=== PATIENT | female | born 1975 | race Caucasian/White ===

== ENCOUNTER 2017-03-29 10:30 | Inpatient (IN) | payer BC ==
[~2017-03-29] VITALS: Ht 177.8 cm; Wt 86.2 kg
--- NOTE | 2017-03-29 11:15 | Emergency Room Report ---
History of Present Illness General Chief Complaint: General Complaint Source: Patient Present Illness HPI Patient present with complaints of increased redness and discomfort to bilateral inguinal region Worsening symptoms over the past several days There is no increased discharge Pain is 6/10 Patient denies any fevers She was previously anemic however denies any shortness of breath or cough Denies any vomiting or diarrhea given the increased erythema given some any discharge and discomfort Patient presents for further eval Allergies: Coded Allergies: No Known Allergies (Unverified , 03/29/17) Patient History Past Medical History: see triage record Pertinent Family History: none Now: No Reviewed Nursing Documentation: PMH: Agreed, PSxH: Agreed Nursing Documentation-PMH Hx Cardiac Problems: No - HIDRADENITIS SUPPURATIVA Hx Hypertension: No - ANEMIA Review of Systems All Other Systems: negative except mentioned in HPI Physical Exam Vital Signs Date Time Temp Pulse Resp B/P (MAP) Pulse Ox O2 Delivery O2 Flow Rate FiO2 03/29/17 10:33 98.2 103 20 127/73 99 Sp02 EP Interpretation: reviewed, normal General Appearance: no apparent distress Head: normocephalic, atraumatic Eyes: bilateral eye PERRL, bilateral eye EOMI ENT: hearing grossly normal, normal pharynx Neck: full range of motion, supple Respiratory: lungs clear Cardiovascular #1: regular rate, rhythm, no edema Gastrointestinal: non tender, soft, no mass Genitourinary: no CVA tenderness Musculoskeletal: normal inspection Neurologic: alert, oriented x3, responsive Skin: other - Significant bilateral inguinal region erythema, tenderness on palpation, multiple areas of fluctuance, the area tracks circumferentially from the anterior inguinal area bilaterally, around to be buttock area Lymphatic: other - Inguinal lymph node difficulty eval given the clinical presentation Medical Decision Making Diagnostic Impression: Primary Impression: Abscess Additional Impression: Cellulitis ER Course Bilateral a little regions appear infected, there is increased erythema fluctuance Area appears fairly concerning Differentials such as, Missael gangrene also considered Patient has baseline blood work initiated Blood work does show elevated white blood cell count in line with the clinical signs of infection patient received IV antibiotics and requires admission for further inpatient care and specialty consultation Labs Test 03/29/17 11:24 White Blood Count 14.3 K/UL (4.8-10.8) Red Blood Count 4.50 M/UL (4.20-5.40) Hemoglobin 11.2 G/DL (12.0-16.0) Hematocrit 36.8 % (37.0-47.0) Mean Corpuscular Volume 82 FL (80-99) Mean Corpuscular Hemoglobin 25.0 PG (27.0-31.0) Mean Corpuscular Hemoglobin Concent 30.6 G/DL (32.0-36.0) Red Cell Distribution Width 19.4 % (11.6-14.8) Platelet Count 457 K/UL (150-450) Mean Platelet Volume 5.2 FL (6.5-10.1) Neutrophils (%) (Auto) 78.6 % (45.0-75.0) Lymphocytes (%) (Auto) 15.3 % (20.0-45.0) Monocytes (%) (Auto) 4.5 % (1.0-10.0) Eosinophils (%) (Auto) 0.8 % (0.0-3.0) Basophils (%) (Auto) 0.7 % (0.0-2.0) Prothrombin Time 9.6 SEC (9.30-11.50) Prothromb Time International Ratio 0.9 (0.9-1.1) Activated Partial Thromboplast Time 24 SEC (23-33) Urine Color Yellow Urine Appearance Clear Urine pH 5 (4.5-8.0) Urine Specific [place] 1.005 (1.005-1.035) Urine Protein Negative (NEGATIVE) Urine Glucose (UA) Negative (NEGATIVE) Urine Ketones Negative (NEGATIVE) Urine Occult Blood 3+ (NEGATIVE) Urine Nitrite Negative (NEGATIVE) Urine Bilirubin Negative (NEGATIVE) Urine Urobilinogen Normal MG/DL (0.0-1.0) Urine Leukocyte Esterase 3+ (NEGATIVE) Urine RBC 2-4 /HPF (0 - 2) Urine WBC 2-4 /HPF (0 - 2) Urine Squamous Epithelial Cells Occasional /LPF Urine Bacteria Occasional /HPF (NONE) Urine HCG, Qualitative Negative Sodium Level 137 mEQ/L (135-145) Potassium Level 4.2 mEQ/L (3.4-4.9) Chloride Level 101 mEQ/L (98-107) Carbon Dioxide Level 24 mEQ/L (20-30) Anion Gap 12 (5-15) Blood Urea Nitrogen 6 mg/dL (7-23) Creatinine 0.6 mg/dL (0.5-0.9) Estimat Glomerular Filtration Rate > 60 mL/min (>60) Glucose Level 89 mg/dL (74-106) Lactic Acid Level 1.10 mmol/L (0.66-2.22) Calcium Level 8.0 mg/dL (8.6-10.2) Total Bilirubin 0.3 mg/dL (0.0-1.2) Aspartate Amino Transf (AST/SGOT) 17 U/L (5-40) Alanine Aminotransferase (ALT/SGPT) 10 U/L (3-33) Alkaline Phosphatase 82 U/L (35-104) Total Creatine Kinase 37 U/L (26-140) Creatine Kinase MB < 1.5 ng/mL (< 3.8) Creatine Kinase MB Relative Index Troponin I < 0.30 ng/mL (<=0.30) Total Protein 7.6 g/dL (6.6-8.7) Albumin 2.8 g/dL (3.5-5.2) Globulin 4.8 g/dL Albumin/Globulin Ratio 0.5 (1.0-2.7) Lipase 14 U/L (< 60) Rhythm Strip Diag. Results EP Interpretation: yes Rate: 67 Rhythm: NSR, no PVC's, no ectopy Last Vital Signs Date Time Temp Pulse Resp B/P (MAP) Pulse Ox O2 Delivery O2 Flow Rate FiO2 03/29/17 10:33 98.2 103 20 127/73 99 Status: improved Disposition: ADMITTED INPATIENT Condition: Serious Referrals: NOT CHOSEN IPA/,REFERRING (PCP) DIEGO SAMAYOA D.O. Mar 29, 2017 11:15
[2017-03-29 11:37] LABS: BASOPHILS % (AUTO) 0.7 % (0.0-2.0); EOSINOPHILS % (AUTO) 0.8 % (0.0-3.0); LYMPHOCYTES % (AUTO) 15.3 % (20.0-45.0); MEAN CORPUSCULAR HGB CONC 30.6 G/DL (32.0-36.0); MEAN CORPUSCULAR VOLUME 82 FL (80-99); MEAN PLATELET VOLUME 5.2 FL (6.5-10.1); MONOCYTES % (AUTO) 4.5 % (1.0-10.0); NEUTROPHILS % (AUTO) 78.6 % (45.0-75.0); PLATELET COUNT 457 K/UL (150-450); RED CELL DISTRIBUTION WIDTH 19.4 % (11.6-14.8); WHITE BLOOD COUNT 14.3 K/UL (4.8-10.8)
[2017-03-29 11:39] LABS: APPEARANCE,URINE CLEAR; KETONES,URINE NEGATIVE (NEGATIVE); LEUKOCYTE ESTERASE ,URINE 3+ (NEGATIVE); NITRITE,URINE NEGATIVE (NEGATIVE); PH,URINE 5 (4.5-8.0); PROTEIN,URINE NEGATIVE (NEGATIVE); UROBILINOGEN,URINE NORMAL MG/DL (0.0-1.0)
[2017-03-29 11:46] LABS: BACTERIA,URINE OCCASIONAL /HPF; SQUAMOUS EPITHELIAL CELL,UR OCCASIONAL /LPF (NONE/OCC)
[2017-03-29 11:48] LABS: INR 0.9 (0.9-1.1); PROTHROMBIN TIME 9.6 SEC (9.30-11.50)
[2017-03-29 11:55] LABS: ALANINE AMINOTRANSFERASE 10 U/L (3-33); ALBUMIN/GLOBULIN RATIO 0.5 (1.0-2.7); ANION GAP 12 (5-15); ASPARTATE AMINO TRANSFERASE 17 U/L (5-40); CARBON DIOXIDE 24 mEQ/L (20-30); CHLORIDE 101 mEQ/L (98-107); CREATININE 0.6 mg/dL (0.5-0.9); GLOMERULAR FILTRATION RATE > 60 mL/min (>60); HEMOLYSIS 47; LIPASE 14 U/L (< 60); POTASSIUM 4.2 mEQ/L (3.4-4.9); SODIUM 137 mEQ/L (135-145); TOTAL PROTEIN 7.6 g/dL (6.6-8.7); TROPONIN I < 0.30 ng/mL (<=0.30)
[2017-03-29 12:00] VITALS: BP 132/79
[2017-03-29 12:05] LABS: CKMB < 1.5 ng/mL (< 3.8)
[2017-03-29] MEDS ORDERED: ENSKYCE1 EACH PO (12:19)
[2017-03-29] MEDS ORDERED: cefTRIAXone 1 GM in NS 55 ML IVPB ONE (12:30)
[2017-03-29] MEDS: Vancomycin 1.5gm/D5W 250ml 250 ML IVPB ONE ×2 (12:46→13:11)
[2017-03-29] MEDS ORDERED: Morphine Sulfate 4mg/ml Inj IVP PRN (14:45)
[2017-03-29] MEDS ORDERED: Milk of Magnesia 30ml Ud ORAL PRN (14:45)
[2017-03-29] MEDS ORDERED: Morphine Sulfate 2mg/ml Inj IVP PRN (14:45)
[2017-03-29] MEDS ORDERED: Zolpidem 5mg tab ORAL PRN (14:45)
[2017-03-29] MEDS ORDERED: Miralax 17gm pkt ORAL PRN (14:45)
[2017-03-29] MEDS: D5 1/2NS 1,000 ML IV SCH (16:05)
--- NOTE | 2017-03-29 16:40 | Diagnostic Imaging Report ---
Indication: Dyspnea Comparison: None A single view chest radiograph was obtained. Findings: Cardiomediastinal appearance is within normal limits for age. Pulmonary vascularity is appropriate. The diaphragmatic contour is smooth and costophrenic angles are sharp. No pleural effusions are identified. The bones are unremarkable. Impression: No acute findings
--- NOTE | 2017-03-29 18:30 | History and Physical ---
History of Present Illness General Date patient seen: Mar 29, 2017 Time patient seen: 18:29 Reason for Hospitalization: Groin swellng/redness/pain/drainage Present Illness HPI 42y/o female with pmh of hiradenitis suppurative who presents with increased redness/swelling/pain/drainage form b/l groins. Pt notes worsening symptoms over the past several days. Denies f/c, n/v, d/c, chest pain, SOB. Able to ambulate several blocks and climb several flights of stairs w/o symptoms. Allergies: Coded Allergies: No Known Allergies (Unverified , 03/29/17) Medication History Miscellaneous Medications Desogestrel-Ethinyl Estradiol (Enskyce), 1 EACH PO, (Reported) Patient History History Provided By: Patient, Medical Record Healthcare decision maker Resuscitation status Advanced Directive on File Past Medical/Surgical History Past Medical/Surgical History: (1) Hidradenitis suppurativa Family History Family History: Patient reports no known family medical history. Social History Social History: (1) No significant social history Review of Systems ROS Narrative CONSTITUTIONAL: No weight loss, fever, chills, weakness or fatigue. HEENT: Eyes: No visual loss, blurred vision, double vision or yellow sclerae. Ears, Nose, Throat: No hearing loss, sneezing, congestion, runny nose or sore throat. SKIN: No rash or itching. CARDIOVASCULAR: No chest pain, chest pressure or chest discomfort. No palpitations or edema. RESPIRATORY: No shortness of breath, cough or sputum. GASTROINTESTINAL: No anorexia, nausea, vomiting or diarrhea. No abdominal pain or blood. NEUROLOGICAL: No headache, dizziness, syncope, paralysis, ataxia, numbness or tingling in the extremities. No change in bowel or bladder control. MUSCULOSKELETAL: No muscle, back pain, joint pain or stiffness. HEMATOLOGIC: No anemia, bleeding or bruising. LYMPHATICS: No enlarged nodes. No history of splenectomy. PSYCHIATRIC: No history of depression or anxiety. ENDOCRINOLOGIC: No reports of sweating, cold or heat intolerance. No polyuria or polydipsia. ALLERGIES: No history of asthma, hives, eczema or rhinitis. Physical Exam Physical Exam Narrative General: alert, cooperative, no distress, appears stated age Head: normocephalic, without obvious abnormality, atraumatic Eyes: conjunctivae/corneas clear. PERRL, EOM's intact Throat: lips, mucosa, and tongue normal. MMM Neck: supple, symmetrical, trachea midline, and no JVD Lungs: clear to auscultation bilaterally Heart: regular rate and rhythm, S1, S2 normal, no murmur, click, rub or gallop Abdomen: soft, non-tender, non-distended, bowel sounds normal; no masses or organomegaly Extremities: extremities normal, atraumatic, no cyanosis or edema Pulses: 2+ and symmetric Skin: skin color, texture, turgor normal; +HS lesions of b/l groin Neurologic: grossly normal, no focal deficits Last 24 Hour Vital Signs Date Time Temp Pulse Resp B/P (MAP) Pulse Ox O2 Delivery O2 Flow Rate FiO2 03/29/17 13:06 98.2 92 16 132/79 100 Room Air 03/29/17 12:00 92 16 132/79 100 Room Air 03/29/17 10:33 98.2 103 20 127/73 99 Intake and Output 03/29/17 03/30/17 19:00 07:00 Intake Total 575 ml Balance 575 ml Intake Oral 520 ml IV Total 55 ml # Voids 1 Laboratory Tests Test 03/29/17 11:24 White Blood Count 14.3 K/UL (4.8-10.8) H Red Blood Count 4.50 M/UL (4.20-5.40) Hemoglobin 11.2 G/DL (12.0-16.0) L Hematocrit 36.8 % (37.0-47.0) L Mean Corpuscular Volume 82 FL (80-99) Mean Corpuscular Hemoglobin 25.0 PG (27.0-31.0) L Mean Corpuscular Hemoglobin Concent 30.6 G/DL (32.0-36.0) L Red Cell Distribution Width 19.4 % (11.6-14.8) H Platelet Count 457 K/UL (150-450) H Mean Platelet Volume 5.2 FL (6.5-10.1) L Neutrophils (%) (Auto) 78.6 % (45.0-75.0) H Lymphocytes (%) (Auto) 15.3 % (20.0-45.0) L Monocytes (%) (Auto) 4.5 % (1.0-10.0) Eosinophils (%) (Auto) 0.8 % (0.0-3.0) Basophils (%) (Auto) 0.7 % (0.0-2.0) Prothrombin Time 9.6 SEC (9.30-11.50) Prothromb Time International Ratio 0.9 (0.9-1.1) Activated Partial Thromboplast Time 24 SEC (23-33) Urine Color Yellow Urine Appearance Clear Urine pH 5 (4.5-8.0) Urine Specific [place] 1.005 (1.005-1.035) Urine Protein Negative (NEGATIVE) Urine Glucose (UA) Negative (NEGATIVE) Urine Ketones Negative (NEGATIVE) Urine Occult Blood 3+ (NEGATIVE) H Urine Nitrite Negative (NEGATIVE) Urine Bilirubin Negative (NEGATIVE) Urine Urobilinogen Normal MG/DL (0.0-1.0) Urine Leukocyte Esterase 3+ (NEGATIVE) H Urine RBC 2-4 /HPF (0 - 2) H Urine WBC 2-4 /HPF (0 - 2) Urine Squamous Epithelial Cells Occasional /LPF Urine Bacteria Occasional /HPF (NONE) Urine HCG, Qualitative Negative Sodium Level 137 mEQ/L (135-145) Potassium Level 4.2 mEQ/L (3.4-4.9) Chloride Level 101 mEQ/L (98-107) Carbon Dioxide Level 24 mEQ/L (20-30) Anion Gap 12 (5-15) Blood Urea Nitrogen 6 mg/dL (7-23) L Creatinine 0.6 mg/dL (0.5-0.9) Estimat Glomerular Filtration Rate > 60 mL/min (>60) Glucose Level 89 mg/dL (74-106) Lactic Acid Level 1.10 mmol/L (0.66-2.22) Calcium Level 8.0 mg/dL (8.6-10.2) L Total Bilirubin 0.3 mg/dL (0.0-1.2) Aspartate Amino Transf (AST/SGOT) 17 U/L (5-40) Alanine Aminotransferase (ALT/SGPT) 10 U/L (3-33) Alkaline Phosphatase 82 U/L (35-104) Total Creatine Kinase 37 U/L (26-140) Creatine Kinase MB < 1.5 ng/mL (< 3.8) Creatine Kinase MB Relative Index Troponin I < 0.30 ng/mL (<=0.30) Total Protein 7.6 g/dL (6.6-8.7) Albumin 2.8 g/dL (3.5-5.2) L Globulin 4.8 g/dL Albumin/Globulin Ratio 0.5 (1.0-2.7) L Lipase 14 U/L (< 60) Height (Feet): 5 Height (Inches): 10.00 Weight (Pounds): 190 Medications Current Medications Medications (Trade) Dose Ordered Sig/Drea Route PRN Reason Start Time Stop Time Status Last Admin Dose Admin Acetaminophen (Tylenol) 650 mg Q4H PRN ORAL Mild Pain (Pain Scale 1-3) 03/29/17 14:45 04/28/17 14:44 Bisacodyl (Dulcolax) 10 mg HSPRN PRN RECTAL Constipation 03/29/17 14:45 04/28/17 14:44 Dextrose (Dextrose 50%) STAT PRN IV Hypoglycemia 03/29/17 14:45 04/28/17 14:44 Dextrose/Sodium Chloride 1,000 ml @ 75 mls/hr [id number] IV 03/29/17 15:00 04/28/17 14:59 03/29/17 16:05 Diphenhydramine HCl (Benadryl) 25 mg Q4H PRN ORAL Itching 03/29/17 15:00 04/28/17 14:59 03/29/17 15:57 Docusate Sodium (Colace) 100 mg EVERY 12 HOURS ORAL 03/29/17 21:00 04/28/17 20:59 Magnesium Hydroxide (Mom) 30 ml HSPRN PRN ORAL Constipation 03/29/17 14:45 04/28/17 14:44 Morphine Sulfate (Morphine Sulfate) 2 mg Q4H PRN IVP Moderate Pain (Pain Scale 4-6) 03/29/17 14:45 04/05/17 14:44 Morphine Sulfate (Morphine Sulfate) 4 mg Q4H PRN IVP Severe Pain (Pain Scale 7-10) 03/29/17 14:45 04/05/17 14:44 Ondansetron HCl (Zofran) 4 mg Q6H PRN IVP Nausea & Vomiting 03/29/17 14:45 04/28/17 14:44 Polyethylene Glycol (Miralax) 17 gm HSPRN PRN ORAL Constipation 03/29/17 14:45 04/28/17 14:44 Zolpidem Tartrate (Ambien) 5 mg HSPRN PRN ORAL Insomnia 03/29/17 14:45 04/05/17 14:44 Assessment/Plan Problem List: (1) Abscess ICD Codes: L02.91 - Cutaneous abscess, unspecified SNOMED: 490082098 (2) Hidradenitis suppurativa ICD Codes: L73.2 - Hidradenitis suppurativa SNOMED: 51460350 Status: stable Assessment/Plan Admit inpt Plastic surgery consulted Check blood cultures x 2 Empiric IV ancef Pain control, bowel regimen Supportive care If patient is required to have surgery, based on the patient's medical history, and other available ancillary data, the patient is a LOW risk for an INTERMEDIATE risk procedure. Per the most recent ACC/AHA guidelines, the patient does not need any further cardiopulmonary testing prior to the procedure and there do not appear to be any clear medical contraindications to proceeding with the proposed procedure. D/w pt, RN, surgery regarding mgmt and dispo Molly Rodriguez M.D. Mar 29, 2017 18:30
[2017-03-29 20:00] VITALS: BP 119/67
[2017-03-29] MEDS: Docusate 100mg cap ORAL SCH (20:07)
[2017-03-30] VITALS (12 sets, daily range): BP systolic 108–124; BP diastolic 58–73
[2017-03-30] MEDS ORDERED: ceFAZolin 1gm/50ml Premix 50 ML IV ONE (00:30)
[2017-03-30] MEDS: D5 1/2NS 1,000 ML IV SCH (05:22)
[2017-03-30] MEDS: Docusate 100mg cap ORAL SCH ×2 (08:26→21:23)
--- NOTE | 2017-03-30 13:32 | General Progress Note ---
Assessment/Plan Problem List: (1) Abscess ICD Codes: L02.91 - Cutaneous abscess, unspecified SNOMED: 122024035 (2) Hidradenitis suppurativa ICD Codes: L73.2 - Hidradenitis suppurativa SNOMED: 85287867 Status: stable Assessment/Plan Plastic surgery consulted Empiric IV ancef F/u blood cultures Pain control, bowel regimen Supportive care D/w pt, RN, surgery regarding mgmt and dispo Subjective Date patient seen: Mar 30, 2017 Time patient seen: 13:32 ROS Limited/Unobtainable: No Constitutional: Reports: no symptoms HEENT: Reports: no symptoms Cardiovascular: Reports: no symptoms Respiratory: Reports: no symptoms Gastrointestinal/Abdominal: Reports: no symptoms Genitourinary: Reports: no symptoms Neurologic/Psychiatric: Reports: no symptoms Endocrine: Reports: no symptoms Hematologic/Lymphatic: Reports: no symptoms Allergies: Coded Allergies: No Known Allergies (Unverified , 03/29/17) Subjective No acute o/n events NPO for OR today Objective Last 24 Hour Vital Signs Date Time Temp Pulse Resp B/P (MAP) Pulse Ox O2 Delivery O2 Flow Rate FiO2 03/30/17 12:00 98.7 80 18 124/70 97 Room Air 03/30/17 08:00 98.3 76 18 120/67 99 Room Air 03/30/17 04:00 97.9 75 18 119/62 97 Room Air 03/29/17 20:00 98.2 88 18 119/67 95 Room Air Intake and Output 03/30/17 03/31/17 19:00 07:00 Intake Total 450 ml Balance 450 ml IV Total 450 ml Height (Feet): 5 Height (Inches): 10.00 Weight (Pounds): 190 Objective General: alert, cooperative, no distress, appears stated age Head: normocephalic, without obvious abnormality, atraumatic Eyes: conjunctivae/corneas clear. PERRL, EOM's intact Throat: lips, mucosa, and tongue normal. MMM Neck: supple, symmetrical, trachea midline, and no JVD Lungs: clear to auscultation bilaterally Heart: regular rate and rhythm, S1, S2 normal, no murmur, click, rub or gallop Abdomen: soft, non-tender, non-distended, bowel sounds normal; no masses or organomegaly Extremities: extremities normal, atraumatic, no cyanosis or edema Pulses: 2+ and symmetric Skin: skin color, texture, turgor normal; no rashes or lesions Neurologic: grossly normal, no focal deficits Molly Rodriguez M.D. Mar 30, 2017 13:32
[2017-03-30] MEDS ORDERED: Bacitracin 50000 Units Vial ONE ×2 (14:18→16:07)
[2017-03-30] MEDS ORDERED: Lidocaine 1% 10mg/ml/Epi 0.005mg/ml 30ml vial INJ ONE ×2 (14:18→16:06)
--- NOTE | 2017-03-30 14:47 | Cardiology Report ---
APPROVED REPORT EKG Measurement Heart [id number] Normal sinus rhythm Possible Left atrial enlargement Left ventricular hypertrophy Abnormal ECG
[2017-03-30] MEDS ORDERED: Metoclopramide 10mg/2ml Inj IVP PRN ×2 (16:00→17:30)
[2017-03-30] MEDS ORDERED: Zolpidem 5mg tab ORAL PRN (16:00)
[2017-03-30] MEDS ORDERED: Rate Change PCA 1 Each MISC PRN ×2 (16:00→17:30)
[2017-03-30] MEDS ORDERED: PCA Education Pamphlet MISC ONE ×2 (16:00→17:30)
--- NOTE | 2017-03-30 16:00 | Pre-Procedure Note/Attestation ---
Pre-Procedure Note/Attestation Complete Prior to Procedure Planned Procedure: bilateral Procedure Narrative: Bilateral groin tissue debridement and flap elevation Attestation I attest that I discussed the nature of the procedure; its benefits; risks and complications; and alternatives (and the risks and benefits of such alternatives ), prior to the procedure, with the patient (or the patient's legal claims customer service representative). I attest that, if there was a reasonable possibility of needing a blood transfusion, the patient (or the patient's legal claims customer service representative) was given the [facility] standardized written summary, pursuant to the Ronal Yumiko Blood Safety Act ([place] Health and Safety Code # 1645, as amended). I attest that I re-evaluated the patient just prior to the surgery and that there has been no change in the patient's H&P, except as documented below: NBA VÁSQUEZ Mar 30, 2017 16:00
[2017-03-30] MEDS ORDERED: NeoSporin Gu Irrig 1ml Amp IRRIG ONE (16:07)
[2017-03-30] MEDS ORDERED: NS Irrig 1000ml ONE (16:30)
[2017-03-30] MEDS ORDERED: LR 1000ml ONE (16:30)
[2017-03-30] MEDS ORDERED: Propofol 200mg/20ml IV ONE (16:30)
[2017-03-30] MEDS ORDERED: Ketorolac 30mg Inj ONE (16:30)
[2017-03-30] MEDS ORDERED: Morphine Sulfate 10mg/ml Inj ONE (16:30)
[2017-03-30] MEDS ORDERED: fentaNYL 100 mcg/2 mL IV ONE (16:30)
[2017-03-30] MEDS ORDERED: Midazolam 2mg/2ml Inj ONE (16:30)
[2017-03-30] MEDS ORDERED: Sterile Water Irrig 1000ml IRRIG ONE (16:30)
[2017-03-30] MEDS ORDERED: Surgicel 4in x 8in TOPIC ONE ×2 (17:17→17:23)
--- NOTE | 2017-03-30 17:26 | Anethesia Preoperative Eval ---
Anesthesia Pre-op PMH/ROS General Date of Evaluation: Mar 30, 2017 Time of Evaluation: 16:10 Anesthesiologist: Judy ASA Score: ASA 3 Mallampati Score Class I : Soft palate, uvula, fauces, pillars visible Class II: Soft palate, uvula, fauces visible Class III: Soft palate, base of uvula visible Class IV: Only hard plate visible Mallampati Classification: Class II Surgeon: Faraz Diagnosis: Recurrent HS Surgical Procedure: Excision of bilateral groin HS Anesthesia History: none Family History: no anesthesia problems Allergies: Coded Allergies: No Known Allergies (Unverified , 03/29/17) Medications: see eMAR Past Medical History Cardiovascular: Denies: HTN, CAD, [place], valve dz, arrhythmia, other Pulmonary: Denies: asthma, COPD, JUANA, other Gastrointestinal/Genitourinary: Reports: GERD Neurologic/Psychiatric: Reports: depression/anxiety, Denies: dementia, CVA, TIA, other Endocrine: Denies: DM, hypothyroidism, steroids, other HEENT: Denies: cataract (L), cataract (R), glaucoma, KOBUK (L), KOBUK (R), other Hematology/Immune: Reports: anemia, Denies: DVT, bleeding disorder, other Musculoskeletal/Integumentary: Denies: OA, RA, DJD, DDD, edema, other Other: obesity - s/p gastric bypass PMH Narrative: as above PSxH Narrative: gastric bypass, abdominoplasty breast reduction, HS treatment Anesthesia Pre-op Phys. Exam Physician Exam Last Vital Signs Date Time Temp Pulse Resp B/P (MAP) Pulse Ox O2 Delivery O2 Flow Rate FiO2 03/30/17 12:00 98.7 80 18 124/70 97 Room Air Constitutional: NAD Neurologic: CN 2-12 intact Cardiovascular: RRR, no M/R/G Respiratory: CTA Gastrointestinal: S/NT/ND Airway Exam Mallampati Score: Class II MO: full Neck: flexible ROM: full Teeth: intact Dentures: no upper, no lower Anesthesia Pre-op A/P Labs see chart Studies Pre-op Studies: EKG - NSR Risk Assessment & Plan Assessment: ASA 3 Plan: GA with LMA Status Change Before Surgery: No Pre-Antibiotics Drug: Ancef 1 gr. Given Within 1 Hr of Incision: Yes Time Given: 17:10 PIETER VARGAS M.D. Mar 30, 2017 17:26
[2017-03-30] MEDS ORDERED: LORazepam 1mg tab ORAL PRN (17:30)
[2017-03-30] MEDS ORDERED: Meperidine 25mg/0.5ml Inj (FOR RIGORS ONLY) IV PRN (17:30)
[2017-03-30] MEDS ORDERED: DiphenhydrAMINE 50mg/ml Inj IVP PRN ×2 (17:30)
[2017-03-30] MEDS ORDERED: Midazolam 2mg/2ml Inj IVP PRN (17:30)
[2017-03-30] MEDS ORDERED: Ketorolac 30mg Inj IV PRN (17:30)
[2017-03-30] MEDS ORDERED: Naloxone 0.4mg/ml Inj IVP PRN (17:30)
[2017-03-30] MEDS ORDERED: PCA HYDROmorphone 1mg/ml 30 ML IV PRN (17:30)
[2017-03-30] MEDS ORDERED: Hydromorphone 0.5mg/0.5ml inj IVP PRN (17:30)
--- NOTE | 2017-03-30 18:31 | Operative Note - PDOC ---
Operative Note Operative Note Pre-op Diagnosis: Bilateral infected groin tissue Procedure: Radical excision of bilateral infected groin tissue with flap elevation Post-op Diagnosis: same as pre-op Surgeon: Faraz Cooker Mechanic: Fiorella Anesthesia: general Specimen: yes Complications: none Condition: stable Estimated Blood Loss: volume - 100 Drains: wound vac Implant(s) used?: Yes NBA VÁSQUEZ Mar 30, 2017 18:31
--- NOTE | 2017-03-30 18:49 | Immediate Post-Op Evaluation ---
Immediate Post-Op Evalulation Immediate Post-Op Evalulation Procedure: Excision of bilateral groin HS Date of Evaluation: Mar 30, 2017 Time of Evaluation: 18:47 IV Fluids: 1800 Blood Products: none Estimated Blood Loss: 250 Urinary Output: 100 Blood Pressure Systolic: 118 Blood Pressure Diastolic: 67 Pulse Rate: 102 Respiratory Rate: 22 O2 Sat by Pulse Oximetry: 99 Temperature (Fahrenheit): 98.6 Pain Score (1-10): 2 Nausea: No Vomiting: No Complications none Patient Status: reacts, patent, none Hydration Status: adequate PIETER VARGAS M.D. Mar 30, 2017 18:49
[2017-03-30] MEDS ORDERED: LR 1000ml 1,000 ML IVLG SCH (19:00)
[2017-03-30] MEDS ORDERED: PCA shift volume MISC SCH (19:00)
[2017-03-30] MEDS: PCA HYDROmorphone 1mg/ml 30 ML IV PRN (19:20)
[2017-03-30] MEDS: Heparin 5000 units/ml inj SUBQ SCH (21:00)
[2017-03-30] MEDS: PCA shift volume MISC SCH ×2 (21:10→23:41)
[2017-03-30] MEDS: ceFAZolin sod 1 GM in D5W 55 ML IVPB SCH (21:23)
[2017-03-31] VITALS: BP 105/65
--- NOTE | 2017-03-31 00:15 | Operative Note - Dictated ---
DATE OF OPERATION: 03/30/2017 PREOPERATIVE DIAGNOSIS: Bilateral infected groin tissues. POSTOPERATIVE DIAGNOSIS: Bilateral infected groin tissues. PROCEDURE PERFORMED: 1. Radical excision of infected left groin tissue. 2. Elevation of medial thigh flap for staged closure of infected groin tissue. 3. Radical excision of right groin infected tissue. 4. Elevation of anterior medial thigh flap for staged closure of right groin wound. SURGEON: Damon Ruth M.D. PREFINISH OPERATOR: Kevin Barros M.D. ANESTHESIA: General. COMPLICATIONS: None. ESTIMATED BLOOD LOSS: 100 mL. DRAINS: Bilateral wound VACs. Indication For Surgery: This is a 42-year-old female, who has very advanced hidradenitis with infected masses in her bilateral groins. She has failed all medical management including antibiotics and Humira and now presents with a very aggressive stage of disease. She has disease all in her perineum as well. I discussed with her that it is impossible to remove everything in one sitting and that also it would be impossible to reconstruct the area in one sitting. As such, we have decided that she will require stages first to remove the infected tissue followed by a period of wound VAC treatment over several days and then followed that by reconstruction of the groin tissues and then in three to six months down the line. Once that all healed, she will be a candidate for excision of the vulvar and perineal disease with reconstruction. She understands the risks and benefits of surgery and agrees to proceed. Details Of The Operation: The patient was brought to the operating room and laid in the lithotomy position on the operating room table. Her bilateral groin, perineum, and thighs were prepped and draped in a sterile and usual fashion. The areas of disease on both areas was marked out with a marking pen and we first addressed the left groin by using a #10 blade to make the incision around the mckeon and the electrocautery was then used to radically excise the wound all the way down to the level of the adductor fascia. The wound extended from the superior groin all way down to the inferior buttock and in total it measured 35 x 15 cm. Obviously this was not amenable to primary closure even though we were not attending to close the wound at this time, a medial thigh flap had to be elevated for staged closure. The medial thigh flap was elevated based off of perforators of the superficial femoral artery with proximal and distal incisions made to fully mobilize the flap and the flap was elevated above the adductor fascia at the fasciocutaneous level. With the flap fully mobilized, we noted that we would be able to bring the wound together in approximation without tension. We then turned our attention to the contralateral side. This area of disease was wider and larger. Once the mckeon were made, a #10 blade was used to incise along the mckeon and this left a defect that measured 20 x 38 cm, which was very large and not amenable to primary closure. As such, a medial thigh flap was elevated in a similar fashion as we done to the contralateral side with the perforators off the superficial femoral artery. Perfusing this flap, the proximal and distal incisions were made with the elevation above the adductor fascia. The wounds were copiously irrigated with pulse lavage irrigation and hemostasis was achieved. Again the level infection was quite profound and it was felt that was not appropriate to perform definitive closure at this time. In fact, it was to the point where I felt that she would probably need at least up to five days of having an open wound with dressing changes before attempting definitive closure. As such, we decided to place a wound VAC into the open wound and bring the patient back in 48 hours for wound VAC change with a plan on performing definitive closure of the wounds as much as possible on Tuesday, which would be five days from now. The patient tolerated the procedure well. There were no complications. Damon Ruth M.D. DR: Nicolas JOB#: [id number] CC:
[2017-03-31 04:00] VITALS: BP 104/60
--- NOTE | 2017-03-31 05:15 | Consultation ---
DATE OF CONSULTATION: 03/30/2017 CONSULTING PHYSICIAN: Damon Ruth M.D. History Of Present Illness: This is a 42-year-old female admitted through the emergency room for bilateral infected groin tissue as well as bilateral infected buttock abscesses. She was started on IV antibiotics and was admitted to the medical team. PAST MEDICAL HISTORY: Significant for hydradenitis. Past Surgical History: Significant for abdominoplasty, breast reduction as well as gastric bypass surgery. PHYSICAL EXAMINATION: GENERAL: The patient is alert and oriented. HEART: Regular rate and rhythm. ABDOMEN: Soft, nontender, and nondistended. Extremities: Examination of the lower extremity reveals multiple areas of abscesses with a large phlegmonous infected mass in both groins. LABORATORY DATA: White blood cell count is 14.3. Assessment and plan: This is a 42-year-old female with very inflamed and infected bilateral groin tissue as well as bilateral buttock tissue. She will require an aggressive radical excision of these areas with a staged treatment with interim wound care, possibly with wound VAC with definitive closure to be performed as a second stage. There is significant amount of disease in the vulvar region as well. There is no way to definitively remove all of her active infection, however, in a staged sequence over the course of several months, we can potentially remove her vulvar disease, but at this initial stage she will only be a candidate for excision of the infected groin tissues with reconstruction of the second stage. Damon Ruth M.D. DR: Nicolas JOB#: [id number] CC:
[2017-03-31] MEDS: ceFAZolin sod 1 GM in D5W 55 ML IVPB SCH ×3 (05:27→21:28)
[2017-03-31 07:13] LABS: BASOPHILS % (AUTO) 0.6 % (0.0-2.0); EOSINOPHILS % (AUTO) 1.4 % (0.0-3.0); MEAN CORPUSCULAR HEMOGLOBIN 25.3 PG (27.0-31.0); MEAN CORPUSCULAR HGB CONC 30.9 G/DL (32.0-36.0); MEAN CORPUSCULAR VOLUME 82 FL (80-99); MEAN PLATELET VOLUME 5.6 FL (6.5-10.1); MONOCYTES % (AUTO) 6.9 % (1.0-10.0); NEUTROPHILS % (AUTO) 77.2 % (45.0-75.0); PLATELET COUNT 378 K/UL (150-450); RED BLOOD COUNT 3.45 M/UL (4.20-5.40); RED CELL DISTRIBUTION WIDTH 19.4 % (11.6-14.8); WHITE BLOOD COUNT 10.6 K/UL (4.8-10.8)
[2017-03-31 07:24] LABS: ANION GAP 7 (5-15); CALCIUM 7.5 mg/dL (8.6-10.2); CARBON DIOXIDE 30 mEQ/L (20-30); CHLORIDE 104 mEQ/L (98-107); CREATININE 0.5 mg/dL (0.5-0.9); GLOMERULAR FILTRATION RATE > 60 mL/min (>60); HEMOLYSIS 1; POTASSIUM 3.8 mEQ/L (3.4-4.9); SODIUM 141 mEQ/L (135-145)
[2017-03-31] MEDS: PCA shift volume MISC SCH ×2 (07:33→19:07)
[2017-03-31 08:30] VITALS: BP 121/72
[2017-03-31] MEDS: Docusate 100mg cap ORAL SCH ×2 (09:06→21:23)
[2017-03-31] MEDS: Heparin 5000 units/ml inj SUBQ SCH ×2 (09:07→21:25)
[2017-03-31] MEDS: DESOGESTREL ORAL SCH (09:50)
[2017-03-31] MEDS: ETHINYL ESTRADIOL ORAL SCH (09:50)
--- NOTE | 2017-03-31 11:13 | General Progress Note ---
Progress Note Progress Note Pt seen and examined. POD # 1 and doing well. Shanks in place to prevent wound contamination and wound vac failure. Will need a wound vac change in AM. The plan will be to close the left side on Tuesday and possibly close the right side as well. Will depend on the state of the wounds. MD FAHAD Varela AMIR Mar 31, 2017 11:13
[2017-03-31 11:32] VITALS: BP 123/79
--- NOTE | 2017-03-31 15:02 | General Progress Note ---
Assessment/Plan Problem List: (1) Abscess ICD Codes: L02.91 - Cutaneous abscess, unspecified SNOMED: 476984342 (2) Hidradenitis suppurativa ICD Codes: L73.2 - Hidradenitis suppurativa SNOMED: [id number] Status: stable Assessment/Plan Plastic surgery consulted s/p radical excision of bilateral infected groin tissue with flap elevation on Empiric IV ancef F/u blood cultures Pain control, bowel regimen Supportive care Post operative recommendations include: - encourage mobilization/ambulation - encourage incentive spirometry to optimize pulmonary hygiene - DVT/GI prophylaxis as appropriate--SCDs, HSQ D/w pt, RN, surgery regarding mgmt and dispo Subjective Date patient seen: Mar 31, 2017 Time patient seen: 15:00 ROS Limited/Unobtainable: No Constitutional: Reports: no symptoms HEENT: Reports: no symptoms Cardiovascular: Reports: no symptoms Respiratory: Reports: no symptoms Gastrointestinal/Abdominal: Reports: no symptoms Genitourinary: Reports: no symptoms Neurologic/Psychiatric: Reports: no symptoms Endocrine: Reports: no symptoms Allergies: Coded Allergies: No Known Allergies (Unverified , 03/29/17) All Systems: reviewed and negative except above Subjective No acute o/n events s/p radical excision of bilateral infected groin tissue with flap elevation yesterday POD#1 Pain controlled. Denies f/c, n/v, d/c, chest pain, SOB Objective Last 24 Hour Vital Signs Date Time Temp Pulse Resp B/P (MAP) Pulse Ox O2 Delivery O2 Flow Rate FiO2 03/31/17 12:00 18 03/31/17 11:32 97.9 86 20 123/79 100 Room Air 03/31/17 08:30 98.6 82 20 121/72 98 Room Air 03/31/17 08:00 18 03/31/17 04:00 18 03/31/17 04:00 97.6 79 16 104/60 79 Room Air 03/31/17 00:00 98.2 84 16 105/65 94 Room Air 03/31/17 00:00 18 03/30/17 21:01 Nasal Cannula 3.0 32 03/30/17 21:00 99 Nasal Cannula 3.0 32 03/30/17 20:00 14 03/30/17 20:00 97.8 88 16 112/73 96 Room Air 03/30/17 19:52 98.0 03/30/17 19:51 98.0 03/30/17 19:51 98.0 03/30/17 19:45 15 03/30/17 19:45 98.0 94 15 108/62 100 Nasal Cannula 3.0 03/30/17 19:30 12 03/30/17 19:30 87 12 116/58 100 Nasal Cannula 3.0 03/30/17 19:20 92 14 116/62 100 Nasal Cannula 3.0 03/30/17 19:20 14 03/30/17 19:10 111 14 110/64 100 Nasal Cannula 3.0 03/30/17 18:55 103 14 115/64 100 Simple Mask 6.0 03/30/17 18:50 102 15 113/65 100 Simple Mask 6.0 03/30/17 18:49 102 22 99 03/30/17 18:45 111 13 118/61 100 Simple Mask 6.0 03/30/17 18:42 98.2 128 14 122/64 100 Simple Mask 6.0 Intake and Output 03/31/17 04/01/17 19:00 07:00 Intake Total 1095 ml Output Total 400 ml Balance 695 ml Intake Oral 570 ml IV Total 525 ml Output Urine Total 400 ml # Voids 1 Laboratory Tests 03/31/17 06:15: White Blood Count 10.6, Red Blood Count 3.45L, Hemoglobin 8.7L, Hematocrit 28.2L , Mean Corpuscular Volume 82, Mean Corpuscular Hemoglobin 25.3L, Mean Corpuscular Hemoglobin Concent 30.9L, Red Cell Distribution Width 19.4H, Platelet Count 378, Mean Platelet Volume 5.6L, Neutrophils (%) (Auto) 77.2H, Lymphocytes (%) (Auto) 14.0L, Monocytes (%) (Auto) 6.9, Eosinophils (%) (Auto) 1.4, Basophils (%) (Auto) 0.6, Sodium Level 141, Potassium Level 3.8, Chloride Level 104, Carbon Dioxide Level 30, Anion Gap 7, Blood Urea Nitrogen 3L, Creatinine 0.5, Estimat Glomerular Filtration Rate > 60, Glucose Level 95, Calcium Level 7.5L Height (Feet): 5 Height (Inches): 10.00 Weight (Pounds): 190 Objective General: alert, cooperative, no distress, appears stated age Head: normocephalic, without obvious abnormality, atraumatic Eyes: conjunctivae/corneas clear. PERRL, EOM's intact Throat: lips, mucosa, and tongue normal. MMM Neck: supple, symmetrical, trachea midline, and no JVD Lungs: clear to auscultation bilaterally Heart: regular rate and rhythm, S1, S2 normal, no murmur, click, rub or gallop Abdomen: soft, non-tender, non-distended, bowel sounds normal; no masses or organomegaly Extremities: extremities normal, atraumatic, no cyanosis or edema Pulses: 2+ and symmetric Skin: skin color, texture, turgor normal; no rashes or lesions Neurologic: grossly normal, no focal deficits Molly Rodriguez M.D. Mar 31, 2017 15:02
[2017-03-31 16:28] VITALS: BP 112/63
[2017-03-31] MEDS: PCA HYDROmorphone 1mg/ml 30 ML IV PRN (19:32)
[2017-03-31 20:16] VITALS: BP 113/69
[2017-04-01] VITALS (11 sets, daily range): BP systolic 90–115; BP diastolic 48–66
[2017-04-01] MEDS: ceFAZolin sod 1 GM in D5W 55 ML IVPB SCH ×3 (05:06→20:58)
[2017-04-01] MEDS ORDERED: Bacitracin 50000 Units Vial ONE (07:04)
[2017-04-01] MEDS ORDERED: NeoSporin Gu Irrig 1ml Amp IRRIG ONE (07:04)
[2017-04-01] MEDS ORDERED: Lidocaine 1% 10mg/ml/Epi 0.005mg/ml 30ml vial INJ ONE (07:04)
--- NOTE | 2017-04-01 07:21 | Pre-Procedure Note/Attestation ---
Pre-Procedure Note/Attestation Complete Prior to Procedure Planned Procedure: bilateral Procedure Narrative: Bilateral wound vac changes to the groin Indications for Procedure Pre-Operative Diagnosis: Bilateral infected groin tissue Attestation I attest that I discussed the nature of the procedure; its benefits; risks and complications; and alternatives (and the risks and benefits of such alternatives ), prior to the procedure, with the patient (or the patient's legal business services representative). I attest that, if there was a reasonable possibility of needing a blood transfusion, the patient (or the patient's legal business services representative) was given the [facility] standardized written summary, pursuant to the Ronal Dalhart Blood Safety Act ([place] Health and Safety Code # 1645, as amended). I attest that I re-evaluated the patient just prior to the surgery and that there has been no change in the patient's H&P, except as documented below: NBA VÁSQUEZ Apr 01, 2017 07:21
[2017-04-01] MEDS ORDERED: Ketorolac 30mg Inj ONE (07:30)
[2017-04-01] MEDS ORDERED: Lidocaine 1% MPF 10mg/ml 5ml ONE (07:30)
[2017-04-01] MEDS ORDERED: LR 1000ml ONE (07:30)
[2017-04-01] MEDS ORDERED: Midazolam 2mg/2ml Inj ONE (07:30)
[2017-04-01] MEDS ORDERED: fentaNYL 100 mcg/2 mL IV ONE (07:30)
[2017-04-01] MEDS ORDERED: PCA Education Pamphlet MISC SCH (07:30)
[2017-04-01] MEDS ORDERED: Propofol 200mg/20ml IV ONE (07:30)
[2017-04-01] MEDS ORDERED: Naloxone 0.4mg/ml Inj IV PRN (07:45)
--- NOTE | 2017-04-01 07:55 | 48 Hour Post Anesthesia Eval ---
Post Anesthesia Evaluation Procedure: Excision of bilateral groin HS Date of Evaluation: Mar 31, 2017 Time of Evaluation: 11:25 Blood Pressure Systolic: 106 0: 58 Pulse Rate: 72 Respiratory Rate: 20 Temperature (Fahrenheit): 97.6 O2 Sat by Pulse Oximetry: 98 Airway: patent Nausea: No Vomiting: No Pain Intensity: 3 Hydration Status: adequate Cardiopulmonary Status: stable Mental Status/LOC: patient returned to baseline Follow-up Care/Observations: n/a Post-Anesthesia Complications: none Follow-up care needed: N/A PIETER VARGAS M.D. Apr 01, 2017 07:55
[2017-04-01] MEDS ORDERED: LR 1000ml 1,000 ML IVLG SCH (07:58)
--- NOTE | 2017-04-01 07:58 | Anethesia Preoperative Eval ---
Anesthesia Pre-op PMH/ROS General Date of Evaluation: Apr 01, 2017 Time of Evaluation: 07:18 Anesthesiologist: Karan ASA Score: ASA 3 Mallampati Score Class I : Soft palate, uvula, fauces, pillars visible Class II: Soft palate, uvula, fauces visible Class III: Soft palate, base of uvula visible Class IV: Only hard plate visible Mallampati Classification: Class II Surgeon: Faraz Diagnosis: Recrrent HS Surgical Procedure: Bilateral groin wounds revision Anesthesia History: none Family History: no anesthesia problems Allergies: Coded Allergies: No Known Allergies (Unverified , 03/29/17) Medications: see eMAR Past Medical History Cardiovascular: Denies: HTN, CAD, [place], valve dz, arrhythmia, other Pulmonary: Denies: asthma, COPD, JUANA, other Gastrointestinal/Genitourinary: Reports: GERD Neurologic/Psychiatric: Reports: depression/anxiety, Denies: dementia, CVA, TIA, other Endocrine: Denies: DM, hypothyroidism, steroids, other HEENT: Denies: cataract (L), cataract (R), glaucoma, [place] (L), [place] (R), other Hematology/Immune: Reports: anemia, Denies: DVT, bleeding disorder, other Musculoskeletal/Integumentary: Reports: other - recurrentHS, Denies: OA, RA, DJD, DDD, edema Other: obesity - s/p gastric bypass PMH Narrative: as above PSxH Narrative: see H&P Anesthesia Pre-op Phys. Exam Physician Exam Last Vital Signs Date Time Temp Pulse Resp B/P (MAP) Pulse Ox O2 Delivery O2 Flow Rate FiO2 04/01/17 04:33 98.1 100 19 115/65 98 Room Air 03/30/17 21:01 3.0 32 Constitutional: NAD Neurologic: CN 2-12 intact Cardiovascular: RRR, no M/R/G Respiratory: CTA Gastrointestinal: S/NT/ND Airway Exam Mallampati Score: Class II MO: full Neck: flexible ROM: full Teeth: intact Dentures: no upper, no lower Anesthesia Pre-op A/P Labs see chart Risk Assessment & Plan Assessment: ASA 3 Plan: GA with LMA Status Change Before Surgery: No Pre-Antibiotics Drug: Ancef 1 gr. Given Within 1 Hr of Incision: Yes Time Given: 07:48 PIETER VARGAS M.D. Apr 01, 2017 07:58
[2017-04-01] MEDS ORDERED: Hydromorphone 0.5mg/0.5ml inj IVP PRN (08:00)
[2017-04-01] MEDS ORDERED: PCA Education Pamphlet MISC ONE (08:00)
[2017-04-01] MEDS ORDERED: Naloxone 0.4mg/ml Inj IVP PRN (08:00)
[2017-04-01] MEDS ORDERED: Ketorolac 30mg Inj IV PRN (08:00)
[2017-04-01] MEDS ORDERED: Meperidine 25mg/0.5ml Inj (FOR RIGORS ONLY) IV PRN (08:00)
[2017-04-01] MEDS ORDERED: Metoclopramide 10mg/2ml Inj IVP PRN ×2 (08:00)
[2017-04-01] MEDS ORDERED: DiphenhydrAMINE 50mg/ml Inj IVP PRN ×2 (08:00→08:45)
[2017-04-01] MEDS ORDERED: Rate Change PCA 1 Each MISC PRN ×2 (08:00)
[2017-04-01] MEDS ORDERED: Midazolam 2mg/2ml Inj IVP PRN (08:00)
[2017-04-01] MEDS ORDERED: PCA HYDROmorphone 1mg/ml 30 ML IV PRN (08:00)
--- NOTE | 2017-04-01 08:16 | Operative Note - PDOC ---
Operative Note Operative Note Pre-op Diagnosis: Bilateral infected groin tissue Procedure: Bilateral groin wound vac changes Post-op Diagnosis: same as pre-op Surgeon: Faraz Process Area Supervisor: Modesta Anesthesia: general Specimen: yes Complications: none Condition: stable Estimated Blood Loss: volume - 100 Drains: wound vac Implant(s) used?: No NBA VÁSQUEZ Apr 01, 2017 08:16
[2017-04-01] MEDS ORDERED: LORazepam 1mg tab ORAL PRN (08:45)
[2017-04-01] MEDS: PCA HYDROmorphone 1mg/ml 30 ML IV PRN (09:05)
[2017-04-01] MEDS: Docusate 100mg cap ORAL SCH ×2 (09:44→20:58)
--- NOTE | 2017-04-01 09:44 | Immediate Post-Op Evaluation ---
Immediate Post-Op Evalulation Immediate Post-Op Evalulation Procedure: Bilateral groin wounds revision with woundvac change Date of Evaluation: Apr 01, 2017 Time of Evaluation: 09:31 IV Fluids: 800 Blood Products: none Estimated Blood Loss: min Urinary Output: 250 Blood Pressure Systolic: 108 Blood Pressure Diastolic: 53 Pulse Rate: 76 Respiratory Rate: 22 O2 Sat by Pulse Oximetry: 98 Temperature (Fahrenheit): 98.1 Pain Score (1-10): 2 Nausea: No Vomiting: No Complications none Patient Status: awake, patent, none Hydration Status: adequate PIETER VARGAS M.D. Apr 01, 2017 09:44
[2017-04-01] MEDS: Heparin 5000 units/ml inj SUBQ SCH ×2 (09:57→21:01)
[2017-04-01] MEDS: ETHINYL ESTRADIOL ORAL SCH (11:29)
[2017-04-01] MEDS: DESOGESTREL ORAL SCH (11:29)
--- NOTE | 2017-04-01 14:58 | General Progress Note ---
Assessment/Plan Problem List: (1) Abscess ICD Codes: L02.91 - Cutaneous abscess, unspecified SNOMED: [id number] (2) Hidradenitis suppurativa ICD Codes: L73.2 - Hidradenitis suppurativa SNOMED: [id number] Status: stable Assessment/Plan Plastic surgery consulted s/p radical excision of bilateral infected groin tissue with flap elevation on Empiric IV ancef F/u blood cultures Pain control, bowel regimen Supportive care Post operative recommendations include: - encourage mobilization/ambulation - encourage incentive spirometry to optimize pulmonary hygiene - DVT/GI prophylaxis as appropriate--SCDs, HSQ D/w pt, RN, surgery regarding mgmt and dispo Subjective Date patient seen: Apr 01, 2017 Time patient seen: 15:00 ROS Limited/Unobtainable: No Constitutional: Reports: no symptoms HEENT: Reports: no symptoms Cardiovascular: Reports: no symptoms Respiratory: Reports: no symptoms Gastrointestinal/Abdominal: Reports: no symptoms Genitourinary: Reports: no symptoms Neurologic/Psychiatric: Reports: no symptoms Endocrine: Reports: no symptoms Hematologic/Lymphatic: Reports: no symptoms Allergies: Coded Allergies: No Known Allergies (Unverified , 03/29/17) Subjective No acute o/n events s/p radical excision of bilateral infected groin tissue with flap elevation POD# 2 Pain controlled. Denies f/c, n/v, d/c, chest pain, SOB Objective Last 24 Hour Vital Signs Date Time Temp Pulse Resp B/P (MAP) Pulse Ox O2 Delivery O2 Flow Rate FiO2 04/01/17 12:20 96 Room Air 21 04/01/17 12:00 97.3 84 17 98/56 95 Room Air 04/01/17 12:00 18 04/01/17 09:44 76 22 98 04/01/17 09:40 97.4 92 19 98/52 97 Room Air 04/01/17 09:20 20 04/01/17 09:05 20 04/01/17 09:00 98.2 90 20 105/57 100 Nasal Cannula 2.0 04/01/17 08:45 88 20 110/62 100 Nasal Cannula 2.0 04/01/17 08:36 92 20 111/65 100 Nasal Cannula 2.0 04/01/17 08:31 85 20 109/50 100 Simple Mask 8.0 04/01/17 08:26 98.2 94 20 110/66 100 Simple Mask 8.0 04/01/17 07:55 72 20 98 04/01/17 04:33 98.1 100 19 115/65 98 Room Air 04/01/17 04:00 18 04/01/17 00:18 98.2 106 19 110/60 97 Room Air 04/01/17 00:00 18 03/31/17 20:16 99.5 99 18 113/69 91 Room Air 03/31/17 20:00 18 03/31/17 19:22 19 03/31/17 19:22 19 03/31/17 16:28 99.5 110 20 112/63 91 Room Air 03/31/17 16:01 19 Intake and Output 04/01/17 04/02/17 19:00 07:00 Intake Total 950 ml Balance 950 ml IV Total 950 ml Height (Feet): 5 Height (Inches): 10.00 Weight (Pounds): 190 Objective General: alert, cooperative, no distress, appears stated age Head: normocephalic, without obvious abnormality, atraumatic Eyes: conjunctivae/corneas clear. PERRL, EOM's intact Throat: lips, mucosa, and tongue normal. MMM Neck: supple, symmetrical, trachea midline, and no JVD Lungs: clear to auscultation bilaterally Heart: regular rate and rhythm, S1, S2 normal, no murmur, click, rub or gallop Abdomen: soft, non-tender, non-distended, bowel sounds normal; no masses or organomegaly Extremities: extremities normal, atraumatic, no cyanosis or edema Pulses: 2+ and symmetric Skin: skin color, texture, turgor normal; no rashes or lesions Neurologic: grossly normal, no focal deficits Molly Rodriguez M.D. Apr 01, 2017 14:58
[2017-04-01] MEDS ORDERED: 1/2 NS 1000ml IV ONE (18:46)
[2017-04-01] MEDS ORDERED: PCA shift volume MISC SCH (19:00)
[2017-04-01] MEDS: PCA shift volume MISC SCH (19:15)
[2017-04-01] MEDS ORDERED: Zolpidem 5mg tab ORAL PRN (21:00)
[2017-04-02] VITALS (7 sets, daily range): BP systolic 100–115; BP diastolic 52–65
--- NOTE | 2017-04-02 00:15 | Operative Note - Dictated ---
DATE OF OPERATION: 04/01/2017 Preoperative Diagnosis: Bilateral open groin wound, status post hidradenitis excision. Postoperative Diagnosis: Bilateral open groin wound, status post hidradenitis excision. PROCEDURE: 1. Bilateral groin wound exploration. 2. Bilateral groin wound wound VAC placement. SURGEON: Damon Ruth M.D. TIME CYCLE OPERATOR: Jaylon Beyrs M.D. ANESTHESIA: General. COMPLICATIONS: None. DRAINS: Included bilateral wound VACs to the groins. Indications For Surgery: This is a 42-year-old female who is 48 hours status post radical excision of bilateral groin HS. At that time, flaps were elevated, but the degree of inflammation was so severe that the wound was not amenable to closure. As such, wound VACs were placed and the decision was made to bring her back to the operating room for another wound VAC change today with plan for possible definitive closure on Tuesday. She understood the risks and benefits of surgery and agreed to proceed. Details Of The Operation: The patient was brought to the operating room and laid in the lithotomy position on the operating room table. Her bilateral groins were prepped and draped in a sterile and usual fashion. The wounds were both explored under direct vision. Retractors were used to look for any evidence of bleeding. All the wounds were fully explored on both sides. After pulse lavage irrigation, hemostasis was achieved and wound VAC sponges were then fashioned to fit both wounds and both wound VACs were then set to 150 mm of high continuous suction. The patient tolerated the procedure well. Plan: The plan will be to bring the patient back to the operating room on Tuesday for definitive closure on the left side and possible definitive closure on the right side. However, the right side wound is larger than the left and may require a partial closure with wound VAC placement and an additional procedure to definitively close the wound on that side. Damon Ruth M.D. DR: NAJMA JOB#: [id number] CC:
[2017-04-02] MEDS: ceFAZolin sod 1 GM in D5W 55 ML IVPB SCH ×3 (06:49→22:49)
[2017-04-02] MEDS: PCA shift volume MISC SCH ×2 (07:00→19:00)
[2017-04-02 08:07] LABS: MEAN CORPUSCULAR HEMOGLOBIN 25.2 PG (27.0-31.0); MEAN CORPUSCULAR HGB CONC 30.8 G/DL (32.0-36.0); MEAN CORPUSCULAR VOLUME 82 FL (80-99); MEAN PLATELET VOLUME 5.6 FL (6.5-10.1); PLATELET COUNT 386 K/UL (150-450); RED BLOOD COUNT 3.07 M/UL (4.20-5.40); RED CELL DISTRIBUTION WIDTH 18.9 % (11.6-14.8); WHITE BLOOD COUNT 12.2 K/UL (4.8-10.8)
[2017-04-02] MEDS: Docusate 100mg cap ORAL SCH ×2 (08:42→22:49)
[2017-04-02] MEDS: DESOGESTREL ORAL SCH (08:42)
[2017-04-02] MEDS: ETHINYL ESTRADIOL ORAL SCH (08:42)
[2017-04-02] MEDS: Heparin 5000 units/ml inj SUBQ SCH ×2 (08:46→22:51)
[2017-04-02] MEDS: PCA HYDROmorphone 1mg/ml 30 ML IV PRN (08:51)
[2017-04-02 09:49] LABS: BAND NEUTROPHILS % (MANUAL) 0 % (0-8); BASOPHILS % (MANUAL) 0 % (0-2); EOSINOPHILS % (MANUAL) 2 % (0-3); LYMPHOCYTES % (MANUAL) 15 % (20-45); MACROCYTES 1+; NEUTROPHILS % (MANUAL) 76 % (45-75); PLATELET ESTIMATE ADEQUATE; PLATELET MORPHOLOGY NORMAL; TOTAL CELLS COUNTED 100
[2017-04-02 09:50] LABS: ANISOCYTOSIS 2+; MICROCYTES 1+
--- NOTE | 2017-04-02 11:01 | 48 Hour Post Anesthesia Eval ---
Post Anesthesia Evaluation Procedure: Bilateral groin wounds revision with woundvac change Date of Evaluation: Apr 02, 2017 Time of Evaluation: 11:00 Blood Pressure Systolic: 116 0: 58 Pulse Rate: 76 Respiratory Rate: 22 Temperature (Fahrenheit): 98.6 O2 Sat by Pulse Oximetry: 98 Airway: patent Nausea: No Vomiting: No Pain Intensity: 3 Hydration Status: adequate Cardiopulmonary Status: stable Mental Status/LOC: patient returned to baseline Follow-up Care/Observations: n/a Post-Anesthesia Complications: none Follow-up care needed: N/A PIETER VARGAS M.D. Apr 02, 2017 11:01
--- NOTE | 2017-04-02 13:33 | General Progress Note ---
Assessment/Plan Problem List: (1) Abscess ICD Codes: L02.91 - Cutaneous abscess, unspecified SNOMED: [id number] (2) Hidradenitis suppurativa ICD Codes: L73.2 - Hidradenitis suppurativa SNOMED: 07913454 (3) Acute blood loss anemia ICD Codes: D62 - Acute posthemorrhagic anemia SNOMED: [id number] Status: stable Assessment/Plan Plastic surgery consulted s/p radical excision of bilateral infected groin tissue with flap elevation on s/p bilateral groin wound vac changes on 04/01/17 Empiric IV ancef F/u blood cultures Transfuse 2U pRBC today per surgery Pain control, bowel regimen Supportive care Post operative recommendations include: - encourage mobilization/ambulation - encourage incentive spirometry to optimize pulmonary hygiene - DVT/GI prophylaxis as appropriate--SCDs, HSQ D/w pt, RN, surgery regarding mgmt and dispo Subjective Date patient seen: Apr 02, 2017 Time patient seen: 15:00 ROS Limited/Unobtainable: No Constitutional: Reports: no symptoms HEENT: Reports: no symptoms Cardiovascular: Reports: no symptoms Respiratory: Reports: no symptoms Gastrointestinal/Abdominal: Reports: no symptoms Genitourinary: Reports: no symptoms Neurologic/Psychiatric: Reports: no symptoms Endocrine: Reports: no symptoms Hematologic/Lymphatic: Reports: no symptoms Allergies: Coded Allergies: No Known Allergies (Unverified , 03/29/17) All Systems: reviewed and negative except above Subjective No acute o/n events s/p radical excision of bilateral infected groin tissue with flap elevation POD# 3 s/p Bilateral groin wound vac changes POD#1 Hgb drop to 7.7, no signs of active bleeding Pain controlled. Denies f/c, n/v, d/c, chest pain, SOB Objective Last 24 Hour Vital Signs Date Time Temp Pulse Resp B/P (MAP) Pulse Ox O2 Delivery O2 Flow Rate FiO2 04/02/17 12:00 15 04/02/17 11:47 97.9 90 17 100/52 95 Room Air 04/02/17 11:01 76 22 98 04/02/17 08:00 15 04/02/17 08:00 98.2 95 16 115/59 97 Room Air 04/02/17 05:28 97.8 92 20 111/65 94 Room Air 04/02/17 04:00 15 04/02/17 04:00 108.0 15 101/61 95 Room Air 04/02/17 00:00 97.2 79 17 105/56 95 Room Air 04/02/17 00:00 16 04/01/17 20:00 17 04/01/17 20:00 97.7 83 16 107/65 95 Room Air 04/01/17 16:00 97.5 82 16 90/48 99 Room Air 04/01/17 16:00 20 Intake and Output 04/02/17 04/03/17 19:00 07:00 Intake Total 300 ml Balance 300 ml IV Total 300 ml Laboratory Tests 04/02/17 07:00: White Blood Count 12.2H, Red Blood Count 3.07L, Hemoglobin 7.7L, Hematocrit 25.1L, Mean Corpuscular Volume 82, Mean Corpuscular Hemoglobin 25.2L, Mean Corpuscular Hemoglobin Concent 30.8L, Red Cell Distribution Width 18.9H, Platelet Count 386, Mean Platelet Volume 5.6L, Neutrophils (%) (Auto) , Lymphocytes (%) (Auto) , Monocytes (%) (Auto) , Eosinophils (%) (Auto) , Basophils (%) (Auto) , Differential Total Cells Counted 100, Neutrophils % ( Manual) 76H, Lymphocytes % (Manual) 15L, Monocytes % (Manual) 7, Eosinophils % ( Manual) 2, Basophils % (Manual) 0, Band Neutrophils 0, Platelet Estimate Adequate, Platelet Morphology Normal, Poikilocytosis , Anisocytosis 2+, Microcytosis 1+, Macrocytosis 1+ Height (Feet): 5 Height (Inches): 10.00 Weight (Pounds): 190 Objective General: alert, cooperative, no distress, appears stated age Head: normocephalic, without obvious abnormality, atraumatic Eyes: conjunctivae/corneas clear. PERRL, EOM's intact Throat: lips, mucosa, and tongue normal. MMM Neck: supple, symmetrical, trachea midline, and no JVD Lungs: clear to auscultation bilaterally Heart: regular rate and rhythm, S1, S2 normal, no murmur, click, rub or gallop Abdomen: soft, non-tender, non-distended, bowel sounds normal; no masses or organomegaly Extremities: extremities normal, atraumatic, no cyanosis or edema Pulses: 2+ and symmetric Skin: skin color, texture, turgor normal; no rashes or lesions Neurologic: grossly normal, no focal deficits Molly Rodriguez M.D. Apr 02, 2017 13:33
[2017-04-02] MEDS: Miralax 17gm pkt ORAL PRN (17:50)
[2017-04-02] MEDS: Iron Sucrose 100 MG in NS 55 ML IV SCH (22:49)
[2017-04-03 00:25] VITALS: BP 110/70
[2017-04-03 04:00] VITALS: BP 112/62
[2017-04-03] MEDS: Milk of Magnesia 30ml Ud ORAL PRN (04:26)
[2017-04-03] MEDS: ceFAZolin sod 1 GM in D5W 55 ML IVPB SCH ×3 (05:19→22:00)
[2017-04-03 06:30] LABS: BASOPHILS % (AUTO) 0.4 % (0.0-2.0); EOSINOPHILS % (AUTO) 1.8 % (0.0-3.0); LYMPHOCYTES % (AUTO) 14.9 % (20.0-45.0); MEAN CORPUSCULAR HEMOGLOBIN 25.9 PG (27.0-31.0); MEAN CORPUSCULAR HGB CONC 31.1 G/DL (32.0-36.0); MEAN CORPUSCULAR VOLUME 83 FL (80-99); MEAN PLATELET VOLUME 5.9 FL (6.5-10.1); MONOCYTES % (AUTO) 6.3 % (1.0-10.0); NEUTROPHILS % (AUTO) 76.6 % (45.0-75.0); PLATELET COUNT 400 K/UL (150-450); RED BLOOD COUNT 3.53 M/UL (4.20-5.40); RED CELL DISTRIBUTION WIDTH 18.7 % (11.6-14.8); WHITE BLOOD COUNT 12.5 K/UL (4.8-10.8)
[2017-04-03] MEDS ORDERED: Rate Change PCA 1 Each MISC PRN (07:15)
[2017-04-03] MEDS ORDERED: PCA HYDROmorphone 1mg/ml 30 ML IV PRN (08:00)
[2017-04-03] MEDS: ETHINYL ESTRADIOL ORAL SCH (08:33)
[2017-04-03] MEDS: DESOGESTREL ORAL SCH (08:33)
[2017-04-03] MEDS: Heparin 5000 units/ml inj SUBQ SCH ×2 (08:36→20:57)
[2017-04-03] MEDS: Docusate 100mg cap ORAL SCH ×2 (08:37→20:54)
[2017-04-03 08:44] VITALS: BP 117/75
[2017-04-03] MEDS ORDERED: DiphenhydrAMINE 50mg/ml Inj IVP PRN (08:45)
[2017-04-03] MEDS ORDERED: LORazepam 1mg tab ORAL PRN (08:45)
[2017-04-03] MEDS ORDERED: Loperamide 2mg cap ORAL ONE (10:30)
--- NOTE | 2017-04-03 10:48 | General Progress Note ---
Progress Note Progress Note Pt seen and examined. Doing well. To OR tomorrow for closure of wounds and wound vac change. NBA Jordan MD Apr 03, 2017 10:48
[2017-04-03 11:32] VITALS: BP 115/76
[2017-04-03] MEDS ORDERED: NS 275ml ONE (14:00)
[2017-04-03] MEDS ORDERED: 1/2 NS 1000ml IV ONE ×3 (14:00→15:49)
[2017-04-03] MEDS ORDERED: Tubing IV Blood Pump IV ONE (14:00)
[2017-04-03 15:55] VITALS: BP 132/78
[2017-04-03] MEDS ORDERED: PCA shift volume MISC SCH (19:00)
[2017-04-03 20:05] VITALS: BP 112/70
[2017-04-03] MEDS: Iron Sucrose 100 MG in NS 55 ML IV SCH ×2 (20:54→22:45)
[2017-04-04] VITALS (18 sets, daily range): BP systolic 107–143; BP diastolic 65–87
[2017-04-04] MEDS: ceFAZolin sod 1 GM in D5W 55 ML IVPB SCH ×3 (05:06→21:08)
[2017-04-04] MEDS: ETHINYL ESTRADIOL ORAL SCH ×2 (09:00→15:55)
[2017-04-04] MEDS: DESOGESTREL ORAL SCH ×2 (09:00→15:55)
[2017-04-04] MEDS: Docusate 100mg cap ORAL SCH ×2 (09:00→21:08)
[2017-04-04] MEDS ORDERED: Bacitracin 50000 Units Vial ONE (09:02)
[2017-04-04] MEDS ORDERED: Lidocaine 1% 10mg/ml/Epi 0.005mg/ml 10ml vial ONE ×2 (09:02→10:22)
--- NOTE | 2017-04-04 09:14 | Pre-Procedure Note/Attestation ---
Pre-Procedure Note/Attestation Complete Prior to Procedure Planned Procedure: bilateral Procedure Narrative: Closure of bilateral groin wounds with possible wound vac placement Indications for Procedure Pre-Operative Diagnosis: Bilateral infected groin tissue Attestation I attest that I discussed the nature of the procedure; its benefits; risks and complications; and alternatives (and the risks and benefits of such alternatives ), prior to the procedure, with the patient (or the patient's legal door to door sales representative). I attest that, if there was a reasonable possibility of needing a blood transfusion, the patient (or the patient's legal door to door sales representative) was given the [facility] standardized written summary, pursuant to the Ronal Yumiko Blood Safety Act ([place] Health and Safety Code # 1645, as amended). I attest that I re-evaluated the patient just prior to the surgery and that there has been no change in the patient's H&P, except as documented below: NBA VÁSQUEZ Apr 04, 2017 09:14
[2017-04-04] MEDS ORDERED: PCA Education Pamphlet MISC ONE ×2 (09:15→12:00)
[2017-04-04] MEDS ORDERED: Zolpidem 5mg tab ORAL PRN (09:15)
[2017-04-04] MEDS ORDERED: Rate Change PCA 1 Each MISC PRN ×2 (09:15→12:00)
[2017-04-04] MEDS ORDERED: PCA HYDROmorphone 1mg/ml 30 ML IV PRN (09:15)
[2017-04-04] MEDS ORDERED: Propofol 200mg/20ml IV ONE (09:30)
[2017-04-04] MEDS ORDERED: Sterile Water Irrig 1000ml IRRIG ONE (09:30)
[2017-04-04] MEDS ORDERED: Morphine Sulfate 10mg/ml Inj ONE (09:30)
[2017-04-04] MEDS ORDERED: Lidocaine 1% MPF 10mg/ml 5ml ONE (09:30)
[2017-04-04] MEDS ORDERED: NS Irrig 1000ml ONE (09:30)
[2017-04-04] MEDS ORDERED: Sodium Chloride 10ml vial INJ ONE (09:30)
[2017-04-04] MEDS ORDERED: LR 1000ml ONE (09:30)
[2017-04-04] MEDS ORDERED: NeoSporin Gu Irrig 1ml Amp IRRIG ONE (09:30)
[2017-04-04] MEDS ORDERED: Midazolam 2mg/2ml Inj ONE (09:30)
[2017-04-04] MEDS ORDERED: Ketorolac 30mg Inj ONE (09:30)
[2017-04-04] MEDS ORDERED: fentaNYL 100 mcg/2 mL IV ONE (09:30)
[2017-04-04] MEDS ORDERED: LR 1000ml 1,000 ML IVLG SCH (10:28)
--- NOTE | 2017-04-04 10:28 | Anethesia Preoperative Eval ---
Anesthesia Pre-op PMH/ROS General Date of Evaluation: Apr 04, 2017 Time of Evaluation: 09:16 Anesthesiologist: Judy ASA Score: ASA 3 Mallampati Score Class I : Soft palate, uvula, fauces, pillars visible Class II: Soft palate, uvula, fauces visible Class III: Soft palate, base of uvula visible Class IV: Only hard plate visible Mallampati Classification: Class II Surgeon: Faraz Diagnosis: Recurrent HS Surgical Procedure: Revision ofg bilateral groin wounds Anesthesia History: none Family History: no anesthesia problems Allergies: Coded Allergies: No Known Allergies (Unverified , 03/29/17) Medications: see eMAR Past Medical History Cardiovascular: Denies: HTN, CAD, [place], valve dz, arrhythmia, other Pulmonary: Denies: asthma, COPD, JUANA, other Gastrointestinal/Genitourinary: Reports: GERD, Denies: CRI, ESRD, other Neurologic/Psychiatric: Reports: depression/anxiety, Denies: dementia, CVA, TIA, other Endocrine: Denies: DM, hypothyroidism, steroids, other HEENT: Denies: cataract (L), cataract (R), glaucoma, [place]BE (L), L[place] TRIBE (R), other Hematology/Immune: Reports: anemia, Denies: DVT, bleeding disorder, other Musculoskeletal/Integumentary: Reports: other - recurrent HS Other: obesity - s/p gastric bypass PMH Narrative: as above PSxH Narrative: see H&P Anesthesia Pre-op Phys. Exam Physician Exam Last Vital Signs Date Time Temp Pulse Resp B/P (MAP) Pulse Ox O2 Delivery O2 Flow Rate FiO2 04/04/17 04:00 97.7 77 18 110/72 94 Room Air 04/01/17 12:20 21 04/01/17 09:00 2.0 Airway Exam Mallampati Score: Class II MO: full Neck: flexible ROM: full Teeth: intact Dentures: no upper, no lower Anesthesia Pre-op A/P Labs see chart Risk Assessment & Plan Assessment: ASA 3 Plan: GA with LMA Status Change Before Surgery: No Pre-Antibiotics Drug: Ancef 1 gr. Given Within 1 Hr of Incision: Yes Time Given: 09:52 PIETER VARGAS M.D. Apr 04, 2017 10:28
[2017-04-04] MEDS ORDERED: DiphenhydrAMINE 50mg/ml Inj IVP PRN ×2 (10:30→12:00)
[2017-04-04] MEDS ORDERED: Midazolam 2mg/2ml Inj IVP PRN (10:30)
[2017-04-04] MEDS ORDERED: Meperidine 25mg/0.5ml Inj (FOR RIGORS ONLY) IV PRN (10:30)
[2017-04-04] MEDS ORDERED: Metoclopramide 10mg/2ml Inj IVP PRN (10:30)
[2017-04-04] MEDS ORDERED: Ketorolac 30mg Inj IV PRN (10:30)
[2017-04-04] MEDS ORDERED: Hydromorphone 0.5mg/0.5ml inj IVP PRN (10:30)
--- NOTE | 2017-04-04 11:45 | Operative Note - PDOC ---
Operative Note Operative Note Pre-op Diagnosis: Bilateral infected groin tissue Procedure: Bilateral groin wound closure with wound vac placement Post-op Diagnosis: same as pre-op Surgeon: Faraz Glass Science Engineer: Modesta Anesthesia: general Specimen: yes Complications: none Condition: stable Estimated Blood Loss: minimal Drains: wound vac Implant(s) used?: No NBA VÁSQUEZ Apr 04, 2017 11:45
[2017-04-04] MEDS ORDERED: Naloxone 0.4mg/ml Inj IVP PRN (12:00)
[2017-04-04] MEDS ORDERED: LORazepam 1mg tab ORAL PRN (12:00)
--- NOTE | 2017-04-04 12:06 | Immediate Post-Op Evaluation ---
Immediate Post-Op Evalulation Immediate Post-Op Evalulation Procedure: Bilateral groin wounds revision with woundvac change Date of Evaluation: Apr 04, 2017 Time of Evaluation: 12:05 IV Fluids: 1000 Blood Products: none Estimated Blood Loss: 50 Urinary Output: 400 Blood Pressure Systolic: 127 Blood Pressure Diastolic: 74 Pulse Rate: 102 Respiratory Rate: 20 O2 Sat by Pulse Oximetry: 99 Temperature (Fahrenheit): 98.6 Pain Score (1-10): 2 Nausea: No Vomiting: No Complications none Patient Status: reacts, patent, none Hydration Status: adequate PIETER VARGAS M.D. Apr 04, 2017 12:06
[2017-04-04] MEDS: PCA HYDROmorphone 1mg/ml 30 ML IV PRN (12:25)
[2017-04-04] MEDS ORDERED: PCA shift volume MISC SCH (19:00)
[2017-04-04] MEDS: PCA shift volume MISC SCH (19:06)
--- NOTE | 2017-04-04 19:30 | Operative Note - Dictated ---
DATE OF OPERATION: 04/04/2017 PREOPERATIVE DIAGNOSIS: Bilateral open groin wounds. POSTOPERATIVE DIAGNOSIS: Bilateral open groin wounds. PROCEDURES: 1. Preparation of left groin wound for flap closure. 2. Medial thigh flap readvancement for closure of the left groin wound. 3. Preparation of right groin wound for flap closure. 4. Reelevation of anterior medial thigh flap for right wound closure. 5. Right groin wound VAC for open portion of the wound. 6. Incisional wound VAC placement over the left groin wound that was completely closed. SURGEON: Damon Ruth M.D. FOAM GUN OPERATOR: Jaylon Byers M.D. ANESTHESIA: General. COMPLICATIONS: None. Drains: Included a 15 Charlie-Malin drain on the left side and a wound VAC on both sides. ESTIMATED BLOOD LOSS: Minimal. COMPLICATIONS: None. DISPOSITION: Stable to the recovery room. Indications For Surgery: This is a 42-year-old female now, who is status post bilateral hidradenitis excision in the groin region with flap elevation, who has undergone wound VAC changes over the past two operations and is now ready to undergo definitive wound closure on the left with near complete closure of the right groin wound. She understands the risks and benefits of surgery and agrees to proceed. Details Of The Operation: The patient was brought to the operating room and laid in the lithotomy position on the operating room table. Her bilateral groin wounds were prepped and draped in a sterile and usual fashion. We first began by debriding the left groin wound and some of the nonviable tissue and once this was completely done and prepared for flap advancement, the wound was copiously irrigated with pulse lavage. The medial thigh flap that had been previously elevated based off of perforators of the superficial femoral artery was then readvanced and re-elevated to allow for more advancement and with the flap fully mobilized once again with proximal and distal incisions made to fully mobilize it further, hemostasis was achieved after pulse lavage and the flap was inset using #0 and 2-0 Vicryl sutures and the skin was closed with a combination of #0 Prolene and charanjit. This wound was closed over a size 15 Charlie-Malin drain and incisional wound VAC was placed on top of this closed incision. We then addressed the right groin wound, which measured approximately 35 x 20 cm. The wound was prepared by debriding some of the nonviable tissue and then the medial thigh flap that had been previously elevated based off of perforators of the superficial femoral artery was then readvanced and further mobilized proximally and distally to allow for flap advancement closure. However given the size of this wound, we were not able to completely advance the flap over the central aspect of the wound. As such, after hemostasis was achieved with pulse lavage, irrigation completed as well. The superior aspect of the wound and the inferior aspect of the wound were amenable to the flap closure with #0 and 2-0 Vicryl sutures and charanjit and #0 Prolene were used to close the skin. There was a central defect that measured approximately 8 x 4 cm that had to be left open because the flap could not be advanced over this area because of too much tension. As such, a wound VAC was placed into this area. The plan will be to bring the patient back for one more dressing change with the wound VAC change in this area in 72 hours. At that time, we will attempt further advancement of the flap, if not we will then just have to do sequential dressing changes to achieve closure of the area. Damon Ruth M.D. DR: BISI JOB#: [id number] CC:
[2017-04-04] MEDS: Heparin 5000 units/ml inj SUBQ SCH (21:10)
[2017-04-04] MEDS: Iron Sucrose 100 MG in NS 55 ML IV SCH (21:36)
[2017-04-05] VITALS: BP 117/68
[2017-04-05 04:00] VITALS: BP 119/68
[2017-04-05] MEDS: ceFAZolin sod 1 GM in D5W 55 ML IVPB SCH ×3 (05:30→22:14)
--- NOTE | 2017-04-05 06:16 | General Progress Note ---
Assessment/Plan Problem List: (1) Abscess ICD Codes: L02.91 - Cutaneous abscess, unspecified SNOMED: 559982818 (2) Hidradenitis suppurativa ICD Codes: L73.2 - Hidradenitis suppurativa SNOMED: 86391962 (3) Acute blood loss anemia ICD Codes: D62 - Acute posthemorrhagic anemia SNOMED: 090526099 Status: stable Assessment/Plan Plastic surgery consulted s/p radical excision of bilateral infected groin tissue with flap elevation on s/p bilateral groin wound vac changes on 04/01/17 Empiric IV ancef F/u blood cultures s/ 2U pRBC on 04/02 IV venofer Pain control, bowel regimen Supportive care Post operative recommendations include: - encourage mobilization/ambulation - encourage incentive spirometry to optimize pulmonary hygiene - DVT/GI prophylaxis as appropriate--SCDs, HSQ D/w pt, RN, surgery regarding mgmt and dispo Subjective Date patient seen: Apr 03, 2017 Time patient seen: 15:20 ROS Limited/Unobtainable: No Constitutional: Reports: no symptoms HEENT: Reports: no symptoms Cardiovascular: Reports: no symptoms Respiratory: Reports: no symptoms Gastrointestinal/Abdominal: Reports: no symptoms Genitourinary: Reports: no symptoms Neurologic/Psychiatric: Reports: no symptoms Endocrine: Reports: no symptoms Hematologic/Lymphatic: Reports: no symptoms Allergies: Coded Allergies: No Known Allergies (Unverified , 03/29/17) All Systems: reviewed and negative except above Subjective No acute o/n events s/p radical excision of bilateral infected groin tissue with flap elevation POD# 4 s/p Bilateral groin wound vac changes POD#2 s/p 2U pRBCs yesterday ---> hgb 9.1 this AM Pain controlled. Denies f/c, n/v, d/c, chest pain, SOB Objective Last 24 Hour Vital Signs Date Time Temp Pulse Resp B/P (MAP) Pulse Ox O2 Delivery O2 Flow Rate FiO2 04/05/17 04:03 16 04/05/17 04:00 98.9 100 16 119/68 92 Room Air 04/05/17 00:00 18 04/05/17 00:00 99.0 96 16 117/68 92 Room Air 04/04/17 20:05 98.4 98 18 122/75 92 Room Air 04/04/17 19:59 18 04/04/17 17:31 98.2 89 18 119/72 98 Nasal Cannula 3.0 04/04/17 16:00 98.2 89 18 119/72 98 Nasal Cannula 3.0 04/04/17 16:00 18 04/04/17 13:35 14 04/04/17 13:30 98.7 95 18 124/76 100 Nasal Cannula 3.0 04/04/17 13:20 97.7 96 13 124/71 99 Nasal Cannula 3.0 04/04/17 13:15 14 04/04/17 13:15 98.7 04/04/17 13:14 94 13 128/68 99 Nasal Cannula 3.0 04/04/17 13:14 98.7 04/04/17 13:00 96 14 120/69 99 Nasal Cannula 3.0 04/04/17 13:00 15 04/04/17 12:45 95 15 121/75 100 Nasal Cannula 3.0 04/04/17 12:45 16 04/04/17 12:40 96 13 119/75 100 Simple Mask 6.0 04/04/17 12:30 104 14 133/74 100 Simple Mask 6.0 04/04/17 12:30 14 04/04/17 12:25 15 04/04/17 12:20 111 16 132/81 100 Simple Mask 6.0 04/04/17 12:10 111 15 143/87 100 Simple Mask 6.0 04/04/17 12:06 102 20 99 04/04/17 12:05 106 12 123/69 99 Simple Mask 6.0 04/04/17 12:00 116 12 127/77 100 Simple Mask 6.0 04/04/17 11:55 98.9 112 13 118/72 98 Simple Mask 6.0 04/04/17 08:15 98.9 83 16 107/65 96 Room Air Height (Feet): 5 Height (Inches): 10.00 Weight (Pounds): 190 Objective General: alert, cooperative, no distress, appears stated age Head: normocephalic, without obvious abnormality, atraumatic Eyes: conjunctivae/corneas clear. PERRL, EOM's intact Throat: lips, mucosa, and tongue normal. MMM Neck: supple, symmetrical, trachea midline, and no JVD Lungs: clear to auscultation bilaterally Heart: regular rate and rhythm, S1, S2 normal, no murmur, click, rub or gallop Abdomen: soft, non-tender, non-distended, bowel sounds normal; no masses or organomegaly Extremities: extremities normal, atraumatic, no cyanosis or edema Pulses: 2+ and symmetric Skin: skin color, texture, turgor normal; no rashes or lesions Neurologic: grossly normal, no focal deficits Molly Rodriguez M.D. Apr 05, 2017 06:16
--- NOTE | 2017-04-05 06:18 | General Progress Note ---
Assessment/Plan Problem List: (1) Abscess ICD Codes: L02.91 - Cutaneous abscess, unspecified SNOMED: 575935404 (2) Hidradenitis suppurativa ICD Codes: L73.2 - Hidradenitis suppurativa SNOMED: 31084247 (3) Acute blood loss anemia ICD Codes: D62 - Acute posthemorrhagic anemia SNOMED: 267049928 Status: stable Assessment/Plan Plastic surgery consulted s/p radical excision of bilateral infected groin tissue with flap elevation on s/p bilateral groin wound vac changes on 04/01/17 s/p bilateral groin wound closure with wound vac placement on 04/04/17 Empiric IV ancef F/u blood cultures--ngtd F/u wound culture--proteus mirabilis s/ 2U pRBC on 04/02 IV venofer Pain control, bowel regimen Supportive care Post operative recommendations include: - encourage mobilization/ambulation - encourage incentive spirometry to optimize pulmonary hygiene - DVT/GI prophylaxis as appropriate--SCDs, HSQ D/w pt, RN, surgery regarding mgmt and dispo Subjective Date patient seen: Apr 04, 2017 Time patient seen: 14:00 ROS Limited/Unobtainable: No Constitutional: Reports: no symptoms HEENT: Reports: no symptoms Cardiovascular: Reports: no symptoms Respiratory: Reports: no symptoms Gastrointestinal/Abdominal: Reports: no symptoms Genitourinary: Reports: no symptoms Neurologic/Psychiatric: Reports: no symptoms Endocrine: Reports: no symptoms Hematologic/Lymphatic: Reports: no symptoms Allergies: Coded Allergies: No Known Allergies (Unverified , 03/29/17) All Systems: reviewed and negative except above Subjective No acute o/n events s/p radical excision of bilateral infected groin tissue with flap elevation POD# 5 s/p Bilateral groin wound vac changes POD#3 s/p Bilateral groin wound closure with wound vac placement today Pain controlled. Denies f/c, n/v, d/c, chest pain, SOB Objective Last 24 Hour Vital Signs Date Time Temp Pulse Resp B/P (MAP) Pulse Ox O2 Delivery O2 Flow Rate FiO2 04/05/17 04:03 16 04/05/17 04:00 98.9 100 16 119/68 92 Room Air 04/05/17 00:00 18 04/05/17 00:00 99.0 96 16 117/68 92 Room Air 04/04/17 20:05 98.4 98 18 122/75 92 Room Air 04/04/17 19:59 18 04/04/17 17:31 98.2 89 18 119/72 98 Nasal Cannula 3.0 04/04/17 16:00 98.2 89 18 119/72 98 Nasal Cannula 3.0 04/04/17 16:00 18 04/04/17 13:35 14 04/04/17 13:30 98.7 95 18 124/76 100 Nasal Cannula 3.0 04/04/17 13:20 97.7 96 13 124/71 99 Nasal Cannula 3.0 04/04/17 13:15 14 04/04/17 13:15 98.7 04/04/17 13:14 94 13 128/68 99 Nasal Cannula 3.0 04/04/17 13:14 98.7 04/04/17 13:00 96 14 120/69 99 Nasal Cannula 3.0 04/04/17 13:00 15 04/04/17 12:45 95 15 121/75 100 Nasal Cannula 3.0 04/04/17 12:45 16 04/04/17 12:40 96 13 119/75 100 Simple Mask 6.0 04/04/17 12:30 104 14 133/74 100 Simple Mask 6.0 04/04/17 12:30 14 04/04/17 12:25 15 04/04/17 12:20 111 16 132/81 100 Simple Mask 6.0 04/04/17 12:10 111 15 143/87 100 Simple Mask 6.0 04/04/17 12:06 102 20 99 04/04/17 12:05 106 12 123/69 99 Simple Mask 6.0 04/04/17 12:00 116 12 127/77 100 Simple Mask 6.0 04/04/17 11:55 98.9 112 13 118/72 98 Simple Mask 6.0 04/04/17 08:15 98.9 83 16 107/65 96 Room Air Height (Feet): 5 Height (Inches): 10.00 Weight (Pounds): 190 Objective General: alert, cooperative, no distress, appears stated age Head: normocephalic, without obvious abnormality, atraumatic Eyes: conjunctivae/corneas clear. PERRL, EOM's intact Throat: lips, mucosa, and tongue normal. MMM Neck: supple, symmetrical, trachea midline, and no JVD Lungs: clear to auscultation bilaterally Heart: regular rate and rhythm, S1, S2 normal, no murmur, click, rub or gallop Abdomen: soft, non-tender, non-distended, bowel sounds normal; no masses or organomegaly Extremities: extremities normal, atraumatic, no cyanosis or edema Pulses: 2+ and symmetric Skin: skin color, texture, turgor normal; no rashes or lesions Neurologic: grossly normal, no focal deficits Molly Rodriguez M.D. Apr 05, 2017 06:18
[2017-04-05] MEDS: PCA shift volume MISC SCH ×2 (07:11→19:00)
[2017-04-05] MEDS: Docusate 100mg cap ORAL SCH ×2 (07:59→21:23)
[2017-04-05 08:00] VITALS: BP 107/73
[2017-04-05] MEDS: Heparin 5000 units/ml inj SUBQ SCH ×2 (08:02→21:31)
--- NOTE | 2017-04-05 11:14 | 48 Hour Post Anesthesia Eval ---
Post Anesthesia Evaluation Procedure: Bilateral groin wounds revision with woundvac change Date of Evaluation: Apr 05, 2017 Time of Evaluation: 13:00 Blood Pressure Systolic: 107 0: 73 Pulse Rate: 84 Respiratory Rate: 19 Temperature (Fahrenheit): 98.6 O2 Sat by Pulse Oximetry: 96 Airway: patent Nausea: Yes Vomiting: No Pain Intensity: 2 Hydration Status: adequate Cardiopulmonary Status: Stable Mental Status/LOC: patient returned to baseline Follow-up Care/Observations: As per surgery Post-Anesthesia Complications: No anesthetic complication Follow-up care needed: N/A JOSI DIAZ M.D. Apr 05, 2017 11:14
[2017-04-05 12:00] VITALS: BP 116/66
[2017-04-05] MEDS: PCA HYDROmorphone 1mg/ml 30 ML IV PRN (12:37)
--- NOTE | 2017-04-05 12:57 | General Progress Note ---
Assessment/Plan Problem List: (1) Abscess ICD Codes: L02.91 - Cutaneous abscess, unspecified SNOMED: 895206864 (2) Hidradenitis suppurativa ICD Codes: L73.2 - Hidradenitis suppurativa SNOMED: 74775282 (3) Acute blood loss anemia ICD Codes: D62 - Acute posthemorrhagic anemia SNOMED: 198598527 Status: stable Assessment/Plan Plastic surgery consulted s/p radical excision of bilateral infected groin tissue with flap elevation on s/p bilateral groin wound vac changes on 04/01/17 s/p bilateral groin wound closure with wound vac placement on 04/04/17 Empiric IV ancef F/u blood cultures--ngtd F/u wound culture--proteus mirabilis s/ 2U pRBC on 04/02 IV venofer Pain control, bowel regimen Supportive care Post operative recommendations include: - encourage mobilization/ambulation - encourage incentive spirometry to optimize pulmonary hygiene - DVT/GI prophylaxis as appropriate--SCDs, HSQ D/w pt, RN, surgery regarding mgmt and dispo Subjective Date patient seen: Apr 05, 2017 Time patient seen: 13:00 ROS Limited/Unobtainable: No Allergies: Coded Allergies: No Known Allergies (Unverified , 03/29/17) Subjective No acute o/n events s/p Bilateral groin wound closure with wound vac placement yesterday POD#1 Pain controlled. Denies f/c, n/v, d/c, chest pain, SOB Objective Last 24 Hour Vital Signs Date Time Temp Pulse Resp B/P (MAP) Pulse Ox O2 Delivery O2 Flow Rate FiO2 04/05/17 12:00 99.5 83 19 116/66 98 Room Air 04/05/17 11:14 84 19 96 04/05/17 09:00 17 04/05/17 08:00 98.6 84 19 107/73 96 Room Air 04/05/17 04:03 16 04/05/17 04:00 98.9 100 16 119/68 92 Room Air 04/05/17 00:00 18 04/05/17 00:00 99.0 96 16 117/68 92 Room Air 04/04/17 20:05 98.4 98 18 122/75 92 Room Air 04/04/17 19:59 18 04/04/17 17:31 98.2 89 18 119/72 98 Nasal Cannula 3.0 04/04/17 16:00 98.2 89 18 119/72 98 Nasal Cannula 3.0 04/04/17 16:00 18 04/04/17 13:35 14 04/04/17 13:30 98.7 95 18 124/76 100 Nasal Cannula 3.0 04/04/17 13:20 97.7 96 13 124/71 99 Nasal Cannula 3.0 04/04/17 13:15 14 04/04/17 13:15 98.7 04/04/17 13:14 94 13 128/68 99 Nasal Cannula 3.0 04/04/17 13:14 98.7 04/04/17 13:00 96 14 120/69 99 Nasal Cannula 3.0 04/04/17 13:00 15 Intake and Output 04/05/17 04/06/17 19:00 07:00 Intake Total 350 ml Output Total 3200 ml Balance -2850 ml Intake Oral 350 ml Output Urine Total 3200 ml # Voids 2 Height (Feet): 5 Height (Inches): 10.00 Weight (Pounds): 190 Objective General: alert, cooperative, no distress, appears stated age Head: normocephalic, without obvious abnormality, atraumatic Eyes: conjunctivae/corneas clear. PERRL, EOM's intact Throat: lips, mucosa, and tongue normal. MMM Neck: supple, symmetrical, trachea midline, and no JVD Lungs: clear to auscultation bilaterally Heart: regular rate and rhythm, S1, S2 normal, no murmur, click, rub or gallop Abdomen: soft, non-tender, non-distended, bowel sounds normal; no masses or organomegaly Extremities: extremities normal, atraumatic, no cyanosis or edema Pulses: 2+ and symmetric Skin: skin color, texture, turgor normal; no rashes or lesions Neurologic: grossly normal, no focal deficits Molly Rodriguez M.D. Apr 05, 2017 12:57
--- NOTE | 2017-04-05 14:04 | General Progress Note ---
Progress Note Progress Note Pt seen and examined. POD # 1 from closure of left groin wound and partial closure of right groin wound. Doing well. Will take to OR for final dressing change to the right groin on . NBA Jordan MD Apr 05, 2017 14:04
[2017-04-05 16:00] VITALS: BP 108/61
[2017-04-05 20:00] VITALS: BP 94/58
[2017-04-05] MEDS: Iron Sucrose 100 MG in NS 55 ML IV SCH (21:23)
[2017-04-06] VITALS: BP 109/59
[2017-04-06 04:00] VITALS: BP 104/65
[2017-04-06] MEDS: ceFAZolin sod 1 GM in D5W 55 ML IVPB SCH ×3 (05:23→22:13)
[2017-04-06] MEDS: PCA shift volume MISC SCH ×2 (07:11→19:00)
[2017-04-06 08:00] VITALS: BP 116/78
[2017-04-06] MEDS: DESOGESTREL ORAL SCH (08:25)
[2017-04-06] MEDS: ETHINYL ESTRADIOL ORAL SCH (08:25)
[2017-04-06] MEDS: Docusate 100mg cap ORAL SCH ×2 (08:25→21:20)
[2017-04-06] MEDS: Heparin 5000 units/ml inj SUBQ SCH ×2 (08:28→21:23)
[2017-04-06] MEDS ORDERED: LORazepam 1mg tab ORAL PRN (10:30)
[2017-04-06] MEDS ORDERED: Rate Change PCA 1 Each MISC PRN (10:30)
[2017-04-06] MEDS ORDERED: Naloxone 0.4mg/ml Inj IVP PRN (10:30)
[2017-04-06] MEDS ORDERED: DiphenhydrAMINE 50mg/ml Inj IVP PRN (10:30)
[2017-04-06] MEDS ORDERED: PCA HYDROmorphone 1mg/ml 30 ML IV PRN (10:30)
[2017-04-06] MEDS: Milk of Magnesia 30ml Ud ORAL PRN (10:36)
--- NOTE | 2017-04-06 10:48 | General Progress Note ---
Progress Note Progress Note Pt seen and examined. Doing well. Will go for an EUA tomorrow and likely dc day after. NBA Jordan MD Apr 06, 2017 10:47
[2017-04-06] MEDS ORDERED: 1/2 NS 1000ml IV ONE ×2 (11:27→16:24)
[2017-04-06 12:00] VITALS: BP 120/70
[2017-04-06] MEDS: Miralax 17gm pkt ORAL PRN (13:06)
[2017-04-06 16:00] VITALS: BP 114/63
[2017-04-06] MEDS ORDERED: Tubing IV Secondary IV ONE (16:24)
[2017-04-06 20:00] VITALS: BP 112/66
[2017-04-06] MEDS ORDERED: Zolpidem 5mg tab ORAL PRN (21:00)
[2017-04-06] MEDS: Iron Sucrose 100 MG in NS 55 ML IV SCH (21:20)
[2017-04-07] VITALS (13 sets, daily range): BP systolic 93–127; BP diastolic 56–78
--- NOTE | 2017-04-07 05:51 | General Progress Note ---
Assessment/Plan Problem List: (1) Abscess ICD Codes: L02.91 - Cutaneous abscess, unspecified SNOMED: 745239836 (2) Hidradenitis suppurativa ICD Codes: L73.2 - Hidradenitis suppurativa SNOMED: 74875023 (3) Acute blood loss anemia ICD Codes: D62 - Acute posthemorrhagic anemia SNOMED: 824153899 Status: stable Assessment/Plan Plastic surgery consulted s/p radical excision of bilateral infected groin tissue with flap elevation on s/p bilateral groin wound vac changes on 04/01/17 s/p bilateral groin wound closure with wound vac placement on 04/04/17 Empiric IV ancef F/u blood cultures--ngtd F/u wound culture--proteus mirabilis s/ 2U pRBC on 04/02 ctm CBC IV venofer Pain control, bowel regimen Supportive care Post operative recommendations include: - encourage mobilization/ambulation - encourage incentive spirometry to optimize pulmonary hygiene - DVT/GI prophylaxis as appropriate--SCDs, HSQ Home health ordered DC planning likely Tuesday per surgery D/w pt, RN, surgery regarding mgmt and dispo Subjective Date patient seen: Apr 06, 2017 Time patient seen: 15:00 Constitutional: Reports: no symptoms HEENT: Reports: no symptoms Cardiovascular: Reports: no symptoms Respiratory: Reports: no symptoms Gastrointestinal/Abdominal: Reports: no symptoms Genitourinary: Reports: no symptoms Neurologic/Psychiatric: Reports: no symptoms Endocrine: Reports: no symptoms Hematologic/Lymphatic: Reports: no symptoms Allergies: Coded Allergies: No Known Allergies (Unverified , 03/29/17) All Systems: reviewed and negative except above Subjective No acute o/n events s/p Bilateral groin wound closure with wound vac placement POD#2 Pain controlled. Denies f/c, n/v, d/c, chest pain, SOB Objective Last 24 Hour Vital Signs Date Time Temp Pulse Resp B/P (MAP) Pulse Ox O2 Delivery O2 Flow Rate FiO2 04/07/17 04:00 17 04/07/17 00:00 17 04/06/17 20:00 98.1 100 18 112/66 95 Room Air 04/06/17 20:00 18 04/06/17 16:00 17 04/06/17 16:00 98.5 105 18 114/63 96 Room Air 04/06/17 12:00 18 04/06/17 12:00 97.6 105 17 120/70 92 Room Air 04/06/17 08:00 18 04/06/17 08:00 98.2 86 16 116/78 97 Room Air Height (Feet): 5 Height (Inches): 10.00 Weight (Pounds): 190 Objective General: alert, cooperative, no distress, appears stated age Head: normocephalic, without obvious abnormality, atraumatic Eyes: conjunctivae/corneas clear. PERRL, EOM's intact Throat: lips, mucosa, and tongue normal. MMM Neck: supple, symmetrical, trachea midline, and no JVD Lungs: clear to auscultation bilaterally Heart: regular rate and rhythm, S1, S2 normal, no murmur, click, rub or gallop Abdomen: soft, non-tender, non-distended, bowel sounds normal; no masses or organomegaly Extremities: extremities normal, atraumatic, no cyanosis or edema Pulses: 2+ and symmetric Skin: skin color, texture, turgor normal; no rashes or lesions Neurologic: grossly normal, no focal deficits Molly Rodriguez M.D. Apr 07, 2017 05:51
[2017-04-07] MEDS: ceFAZolin sod 1 GM in D5W 55 ML IVPB SCH ×3 (06:14→21:40)
[2017-04-07] MEDS: PCA shift volume MISC SCH (07:00)
[2017-04-07 07:05] LABS: BASOPHILS % (AUTO) 0.4 % (0.0-2.0); EOSINOPHILS % (AUTO) 1.4 % (0.0-3.0); LYMPHOCYTES % (AUTO) 9.1 % (20.0-45.0); MEAN CORPUSCULAR HEMOGLOBIN 26.5 PG (27.0-31.0); MEAN CORPUSCULAR HGB CONC 31.6 G/DL (32.0-36.0); MEAN CORPUSCULAR VOLUME 84 FL (80-99); MEAN PLATELET VOLUME 5.8 FL (6.5-10.1); MONOCYTES % (AUTO) 6.4 % (1.0-10.0); NEUTROPHILS % (AUTO) 82.7 % (45.0-75.0); PLATELET COUNT 429 K/UL (150-450); RED BLOOD COUNT 3.51 M/UL (4.20-5.40); RED CELL DISTRIBUTION WIDTH 18.5 % (11.6-14.8); WHITE BLOOD COUNT 16.1 K/UL (4.8-10.8)
[2017-04-07 07:12] LABS: ANION GAP 6 (5-15); CALCIUM 7.5 mg/dL (8.6-10.2); CARBON DIOXIDE 31 mEQ/L (20-30); CHLORIDE 98 mEQ/L (98-107); CREATININE 0.3 mg/dL (0.5-0.9); GLOMERULAR FILTRATION RATE > 60 mL/min (>60); HEMOLYSIS 2; POTASSIUM 3.7 mEQ/L (3.4-4.9); SODIUM 135 mEQ/L (135-145)
[2017-04-07] MEDS ORDERED: Lidocaine 1% 10mg/ml/Epi 0.005mg/ml 30ml vial INJ ONE (07:21)
[2017-04-07] MEDS ORDERED: Surgicel 4in x 8in TOPIC ONE ×2 (07:21→11:29)
[2017-04-07] MEDS ORDERED: Bacitracin 50000 Units Vial ONE (07:21)
[2017-04-07] MEDS: Heparin 5000 units/ml inj SUBQ SCH ×2 (08:17→21:39)
[2017-04-07] MEDS: Docusate 100mg cap ORAL SCH ×2 (08:17→21:40)
[2017-04-07] MEDS: ETHINYL ESTRADIOL ORAL SCH ×2 (08:18→18:14)
[2017-04-07] MEDS: DESOGESTREL ORAL SCH ×2 (08:18→18:14)
--- NOTE | 2017-04-07 10:23 | Pre-Procedure Note/Attestation ---
Pre-Procedure Note/Attestation Complete Prior to Procedure Planned Procedure: bilateral Procedure Narrative: Examination under anesthesia with wound vac removal from groins Indications for Procedure Pre-Operative Diagnosis: Bilateral infected groin tissue Attestation I attest that I discussed the nature of the procedure; its benefits; risks and complications; and alternatives (and the risks and benefits of such alternatives ), prior to the procedure, with the patient (or the patient's legal accounts payable representative). I attest that, if there was a reasonable possibility of needing a blood transfusion, the patient (or the patient's legal accounts payable representative) was given the [facility] standardized written summary, pursuant to the [place] Blood Safety Act ([place] [facility] and Safety Code # 1645, as amended). I attest that I re-evaluated the patient just prior to the surgery and that there has been no change in the patient's H&P, except as documented below: NBA VÁSQUEZ Apr 07, 2017 10:23
[2017-04-07] MEDS ORDERED: DiphenhydrAMINE 50mg/ml Inj IVP PRN ×2 (10:30→12:15)
[2017-04-07] MEDS ORDERED: Propofol 200mg/20ml IV ONE (10:55)
[2017-04-07] MEDS ORDERED: Sterile Water Irrig 1000ml IRRIG ONE (11:00)
[2017-04-07] MEDS ORDERED: NS Irrig 2000ml IRRIG ONE (11:00)
[2017-04-07] MEDS ORDERED: LR 1000ml ONE (11:00)
[2017-04-07] MEDS ORDERED: Midazolam 2mg/2ml Inj ONE (11:00)
[2017-04-07] MEDS ORDERED: fentaNYL 100 mcg/2 mL IV ONE (11:00)
--- NOTE | 2017-04-07 11:44 | Operative Note - PDOC ---
Operative Note Operative Note Pre-op Diagnosis: Bilateral infected groin tissue Procedure: Bilateral groin tissue debridement and EUAt Post-op Diagnosis: same as pre-op Surgeon: Faraz Clay Modeler: Modesta Anesthesia: general Specimen: yes Complications: none Condition: stable Estimated Blood Loss: minimal Drains: wound vac Implant(s) used?: No NBA VÁSQUEZ Apr 07, 2017 11:44
--- NOTE | 2017-04-07 12:03 | Anethesia Preoperative Eval ---
Anesthesia Pre-op PMH/ROS General Date of Evaluation: Apr 07, 2017 Time of Evaluation: 10:50 Anesthesiologist: Judy ASA Score: ASA 2 Mallampati Score Class I : Soft palate, uvula, fauces, pillars visible Class II: Soft palate, uvula, fauces visible Class III: Soft palate, base of uvula visible Class IV: Only hard plate visible Mallampati Classification: Class II Surgeon: Faraz Diagnosis: Recurrent HS Surgical Procedure: Revision of bilateral groin wounds Anesthesia History: none Family History: no anesthesia problems Allergies: Coded Allergies: No Known Allergies (Unverified , 03/29/17) Medications: see eMAR Past Medical History Cardiovascular: Denies: HTN, CAD, [place], valve dz, arrhythmia, other Pulmonary: Denies: asthma, COPD, JUANA, other Gastrointestinal/Genitourinary: Reports: GERD, Denies: CRI, ESRD, other Neurologic/Psychiatric: Reports: depression/anxiety, Denies: dementia, CVA, TIA, other Endocrine: Denies: DM, hypothyroidism, steroids, other HEENT: Denies: cataract (L), cataract (R), glaucoma, WASHOE (L), WASHOE (R), other Hematology/Immune: Reports: anemia, Denies: DVT, bleeding disorder, other Musculoskeletal/Integumentary: Reports: other - recurrent HS, Denies: OA, RA, DJD, DDD, edema Other: obesity - s/p gastric bypass PMH Narrative: as above PSxH Narrative: see H&P Anesthesia Pre-op Phys. Exam Physician Exam Last Vital Signs Date Time Temp Pulse Resp B/P (MAP) Pulse Ox O2 Delivery O2 Flow Rate FiO2 04/07/17 08:00 16 04/07/17 07:58 98.1 89 93/60 92 Room Air 04/04/17 17:31 3.0 04/01/17 12:20 21 Constitutional: NAD Neurologic: CN 2-12 intact Cardiovascular: RRR, no M/R/G Respiratory: CTA Gastrointestinal: S/NT/ND Airway Exam Mallampati Score: Class II MO: full Neck: flexible ROM: full Teeth: intact Dentures: no upper, no lower Anesthesia Pre-op A/P Labs Hematology Test 04/07/17 06:30 White Blood Count 16.1 K/UL (4.8-10.8) H Red Blood Count 3.51 M/UL (4.20-5.40) L Hemoglobin 9.3 G/DL (12.0-16.0) L Hematocrit 29.5 % (37.0-47.0) L Mean Corpuscular Volume 84 FL (80-99) Mean Corpuscular Hemoglobin 26.5 PG (27.0-31.0) L Mean Corpuscular Hemoglobin Concent 31.6 G/DL (32.0-36.0) L Red Cell Distribution Width 18.5 % (11.6-14.8) H Platelet Count 429 K/UL (150-450) Mean Platelet Volume 5.8 FL (6.5-10.1) L Neutrophils (%) (Auto) 82.7 % (45.0-75.0) H Lymphocytes (%) (Auto) 9.1 % (20.0-45.0) L Monocytes (%) (Auto) 6.4 % (1.0-10.0) Eosinophils (%) (Auto) 1.4 % (0.0-3.0) Basophils (%) (Auto) 0.4 % (0.0-2.0) Chemistry Test 04/07/17 06:30 Sodium Level 135 mEQ/L (135-145) Potassium Level 3.7 mEQ/L (3.4-4.9) Chloride Level 98 mEQ/L (98-107) Carbon Dioxide Level 31 mEQ/L (20-30) H Anion Gap 6 (5-15) Blood Urea Nitrogen 5 mg/dL (7-23) L Creatinine 0.3 mg/dL (0.5-0.9) L Estimat Glomerular Filtration Rate > 60 mL/min (>60) Glucose Level 96 mg/dL (74-106) Calcium Level 7.5 mg/dL (8.6-10.2) L Risk Assessment & Plan Assessment: ASA 2 Plan: GA with LMA Status Change Before Surgery: No Pre-Antibiotics Drug: Ancef 1 gr. Given Within 1 Hr of Incision: Yes Time Given: 11:28 PIETER VARGAS M.D. Apr 07, 2017 12:03
[2017-04-07] MEDS ORDERED: LR 1000ml 1,000 ML IVLG SCH (12:05)
--- NOTE | 2017-04-07 12:05 | Immediate Post-Op Evaluation ---
Immediate Post-Op Evalulation Immediate Post-Op Evalulation Procedure: Bilateral groin wounds revision with woundvac removal Date of Evaluation: Apr 07, 2017 Time of Evaluation: 12:04 IV Fluids: 400 Blood Products: none Estimated Blood Loss: 50 Urinary Output: 100 Blood Pressure Systolic: 114 Blood Pressure Diastolic: 73 Pulse Rate: 110 Respiratory Rate: 20 O2 Sat by Pulse Oximetry: 99 Temperature (Fahrenheit): 97.6 Pain Score (1-10): 3 Nausea: No Vomiting: No Complications none Patient Status: awake, patent, none Hydration Status: adequate PIETER VARGAS M.D. Apr 07, 2017 12:05
[2017-04-07] MEDS ORDERED: Meperidine 25mg/0.5ml Inj (FOR RIGORS ONLY) IV PRN (12:15)
[2017-04-07] MEDS ORDERED: Metoclopramide 10mg/2ml Inj IVP PRN (12:15)
[2017-04-07] MEDS ORDERED: Ketorolac 30mg Inj IV PRN (12:15)
[2017-04-07] MEDS ORDERED: Hydromorphone 0.5mg/0.5ml inj IVP PRN (12:15)
[2017-04-07] MEDS ORDERED: Midazolam 2mg/2ml Inj IVP PRN (12:15)
[2017-04-07] MEDS ORDERED: NORCO 5-325 TA1 EACH ORAL (15:23)
[2017-04-07] MEDS ORDERED: KEFLEX500 MG ORAL (15:23)
[2017-04-07] MEDS: Norco 10mg/325mg tab ORAL PRN (18:30)
--- NOTE | 2017-04-07 20:45 | Operative Note - Dictated ---
DATE OF OPERATION: 04/07/2017 PREOPERATIVE DIAGNOSIS: Bilateral groin wounds. POSTOPERATIVE DIAGNOSIS: Bilateral groin wounds. Procedures: Bilateral groin wound debridement and examination under anesthesia. SURGEON: Damon Ruth M.D. APERTURE MASK ETCHER: Cuate Barros M.D. ANESTHESIA: General. DRAINS: None. COMPLICATIONS: None. DISPOSITION: Stable to the recovery room. Indications For Surgery: This is a 42-year-old female, who is three days postoperative from closure of her bilateral groin wounds where she was able to undergo partial closure of her right groin wound and near-complete closure of her left groin wound; however, upon removal of the dressings in the operating room, we noted that there was dehiscence of the left groin wound as well given that there was persistent or existing medial disease in her vulva, which contributed to the dehiscence more than likely. She was consented to undergo examination under anesthesia and understood the risks and benefits of surgery and agreed to proceed. Details Of The Operation: The patient was brought to the operating room and laid in the lithotomy position on the operating room table. Her bilateral groin was prepped and draped in sterile and usual fashion. The right groin wound was quite healthy and it was clearly not amenable to further closure. As such, it was treated with pulse lavage and we proceeded to then evaluate the left groin wound and there was a central dehiscence of approximately 6 cm. The loose sutures were removed as was the nonviable tissue that was debrided using a sharp knife. Electrocautery was then used to debride the nonviable tissue and then following this pulse lavage, irrigation was used to cleanse this site and the contralateral wound again and once hemostasis was achieved, the wounds were packed with Betadine-soaked gauze. The plan will be to perform and pursue daily wound care to allow for these wounds to heal. The patient tolerated the procedure well. There were no complications. Damon Ruth M.D. DR: BISI JOB#: [id number] CC:
[2017-04-07] MEDS ORDERED: Zolpidem 5mg tab ORAL PRN (21:00)
--- NOTE | 2017-04-07 23:15 | General Progress Note ---
Assessment/Plan Problem List: (1) Abscess ICD Codes: L02.91 - Cutaneous abscess, unspecified SNOMED: 636306620 (2) Hidradenitis suppurativa ICD Codes: L73.2 - Hidradenitis suppurativa SNOMED: 75594113 (3) Acute blood loss anemia ICD Codes: D62 - Acute posthemorrhagic anemia SNOMED: 574987364 Status: stable Assessment/Plan Plastic surgery consulted s/p radical excision of bilateral infected groin tissue with flap elevation on s/p bilateral groin wound vac changes on 04/01/17 s/p bilateral groin wound closure with wound vac placement on 04/04/17 s/p bilateral groin tissue debridement and EUA on 04/07/17 Empiric IV ancef F/u blood cultures--ngtd F/u wound culture--proteus mirabilis s/p 2U pRBC on 04/02 ctm CBC IV venofer for Fe def anemia Pain control, bowel regimen Supportive care Post operative recommendations include: - encourage mobilization/ambulation - encourage incentive spirometry to optimize pulmonary hygiene - DVT/GI prophylaxis as appropriate--SCDs, HSQ Home health ordered D/C held given pt require further wound care and unable to ambulate much yet D/w pt, RN, surgery regarding mgmt and dispo Subjective Date patient seen: Apr 07, 2017 Time patient seen: 18:00 ROS Limited/Unobtainable: No Constitutional: Reports: no symptoms HEENT: Reports: no symptoms Cardiovascular: Reports: no symptoms Respiratory: Reports: no symptoms Gastrointestinal/Abdominal: Reports: no symptoms Genitourinary: Reports: no symptoms Neurologic/Psychiatric: Reports: no symptoms Endocrine: Reports: no symptoms Hematologic/Lymphatic: Reports: no symptoms Allergies: Coded Allergies: No Known Allergies (Unverified , 03/29/17) Subjective No acute o/n events s/p Bilateral groin wound closure with wound vac placement POD#3 sp Bilateral groin tissue debridement and EUA yesterday Pain controlled. Denies f/c, n/v, d/c, chest pain, SOB Hasn't been able to ambulate much 2/2 pain Objective Last 24 Hour Vital Signs Date Time Temp Pulse Resp B/P (MAP) Pulse Ox O2 Delivery O2 Flow Rate FiO2 04/07/17 22:17 99.1 04/07/17 20:00 99.1 95 18 110/60 94 Room Air 04/07/17 19:29 97.4 04/07/17 16:05 97.4 98 20 101/59 99 Room Air 04/07/17 15:55 18 04/07/17 14:00 98.3 99 20 110/69 97 Room Air 04/07/17 13:25 98.3 99 20 105/64 100 Room Air 04/07/17 12:50 98.0 95 19 106/66 100 Nasal Cannula 3.0 04/07/17 12:46 13 04/07/17 12:40 98.0 04/07/17 12:35 95 13 115/65 100 Nasal Cannula 3.0 04/07/17 12:20 99 19 115/73 100 Nasal Cannula 3.0 04/07/17 12:10 95 12 115/73 100 Nasal Cannula 3.0 04/07/17 12:05 110 20 99 04/07/17 12:04 91 15 106/64 100 Nasal Cannula 3.0 04/07/17 11:59 103 12 114/73 100 Simple Mask 6.0 04/07/17 11:54 97.7 102 11 127/78 100 Simple Mask 6.0 04/07/17 08:00 16 04/07/17 07:58 98.1 89 20 93/60 92 Room Air 04/07/17 04:00 98.2 87 18 102/56 98 Room Air 04/07/17 04:00 17 04/07/17 00:00 17 Intake and Output 04/07/17 04/08/17 19:00 07:00 Intake Total 1020 ml 55 ml Output Total 1150 ml Balance -130 ml 55 ml Intake Oral 520 ml IV Total 500 ml 55 ml Output Urine Total 1100 ml Estimated Blood Loss 50 ml Laboratory Tests 04/07/17 06:30: White Blood Count 16.1H, Red Blood Count 3.51L, Hemoglobin 9.3L, Hematocrit 29.5L, Mean Corpuscular Volume 84, Mean Corpuscular Hemoglobin 26.5L, Mean Corpuscular Hemoglobin Concent 31.6L, Red Cell Distribution Width 18.5H, Platelet Count 429, Mean Platelet Volume 5.8L, Neutrophils (%) (Auto) 82.7H, Lymphocytes (%) (Auto) 9.1L, Monocytes (%) (Auto) 6.4, Eosinophils (%) (Auto) 1.4, Basophils (%) (Auto) 0.4, Sodium Level 135, Potassium Level 3.7, Chloride Level 98, Carbon Dioxide Level 31H, Anion Gap 6, Blood Urea Nitrogen 5L, Creatinine 0.3L, Estimat Glomerular Filtration Rate > 60, Glucose Level 96, Calcium Level 7.5L Height (Feet): 5 Height (Inches): 10.00 Weight (Pounds): 190 Objective General: alert, cooperative, no distress, appears stated age Head: normocephalic, without obvious abnormality, atraumatic Eyes: conjunctivae/corneas clear. PERRL, EOM's intact Throat: lips, mucosa, and tongue normal. MMM Neck: supple, symmetrical, trachea midline, and no JVD Lungs: clear to auscultation bilaterally Heart: regular rate and rhythm, S1, S2 normal, no murmur, click, rub or gallop Abdomen: soft, non-tender, non-distended, bowel sounds normal; no masses or organomegaly Extremities: extremities normal, atraumatic, no cyanosis or edema Pulses: 2+ and symmetric Skin: skin color, texture, turgor normal; no rashes or lesions Neurologic: grossly normal, no focal deficits Molly Rodriguez M.D. Apr 07, 2017 23:15
[2017-04-08] VITALS: BP 108/66
[2017-04-08 04:00] VITALS: BP 121/54
[2017-04-08] MEDS: ceFAZolin sod 1 GM in D5W 55 ML IVPB SCH ×3 (05:37→21:01)
[2017-04-08 07:14] LABS: BASOPHILS % (AUTO) 0.5 % (0.0-2.0); EOSINOPHILS % (AUTO) 1.5 % (0.0-3.0); LYMPHOCYTES % (AUTO) 10.2 % (20.0-45.0); MEAN CORPUSCULAR HEMOGLOBIN 26.7 PG (27.0-31.0); MEAN CORPUSCULAR VOLUME 83 FL (80-99); NEUTROPHILS % (AUTO) 81.7 % (45.0-75.0); PLATELET COUNT 444 K/UL (150-450); RED BLOOD COUNT 3.59 M/UL (4.20-5.40); RED CELL DISTRIBUTION WIDTH 17.8 % (11.6-14.8); WHITE BLOOD COUNT 15.9 K/UL (4.8-10.8)
[2017-04-08 08:00] VITALS: BP 114/65
[2017-04-08] MEDS ORDERED: Dakin's 0.25% (Half Strength) 16oz TOPIC SCH (09:00)
[2017-04-08] MEDS: DESOGESTREL ORAL SCH (09:30)
[2017-04-08] MEDS: Docusate 100mg cap ORAL SCH ×2 (09:30→21:01)
[2017-04-08] MEDS: ETHINYL ESTRADIOL ORAL SCH (09:30)
[2017-04-08] MEDS: Heparin 5000 units/ml inj SUBQ SCH ×2 (09:34→21:01)
[2017-04-08] MEDS ORDERED: D5 1/2NS 1000ml IV ONE (10:43)
[2017-04-08] MEDS: Nystatin Powder 100,000 units/gm 15gm TOPIC SCH (10:59)
[2017-04-08] MEDS: Dakin's 0.25% (Half Strength) 16oz TOPIC SCH (10:59)
[2017-04-08 12:00] VITALS: BP 124/74
[2017-04-08] MEDS ORDERED: Nystatin Powder 100,000 units/gm 15gm TOPIC SCH (13:00)
--- NOTE | 2017-04-08 14:40 | 48 Hour Post Anesthesia Eval ---
Post Anesthesia Evaluation Procedure: Bilateral groin wounds revision with woundvac removal Date of Evaluation: Apr 08, 2017 Time of Evaluation: 14:39 Blood Pressure Systolic: 124 0: 58 Pulse Rate: 72 Respiratory Rate: 18 Temperature (Fahrenheit): 97.6 O2 Sat by Pulse Oximetry: 98 Airway: patent Nausea: No Vomiting: No Pain Intensity: 3 Hydration Status: adequate Cardiopulmonary Status: stable Mental Status/LOC: patient returned to baseline Follow-up Care/Observations: n/a Post-Anesthesia Complications: none Follow-up care needed: N/A PIETER VARGAS M.D. Apr 08, 2017 14:40
[2017-04-08 16:00] VITALS: BP 106/68
[2017-04-08 20:00] VITALS: BP 117/66
[2017-04-09] VITALS: BP 106/72
[2017-04-09 04:00] VITALS: BP 108/62
[2017-04-09] MEDS: ceFAZolin sod 1 GM in D5W 55 ML IVPB SCH (06:23)
--- NOTE | 2017-04-09 07:55 | General Progress Note ---
Assessment/Plan Problem List: (1) Abscess ICD Codes: L02.91 - Cutaneous abscess, unspecified SNOMED: [id number] (2) Hidradenitis suppurativa ICD Codes: L73.2 - Hidradenitis suppurativa SNOMED: 22957894 (3) Acute blood loss anemia ICD Codes: D62 - Acute posthemorrhagic anemia SNOMED: 692220304 Status: stable Assessment/Plan Plastic surgery consulted s/p radical excision of bilateral infected groin tissue with flap elevation on s/p bilateral groin wound vac changes on 04/01/17 s/p bilateral groin wound closure with wound vac placement on 04/04/17 s/p bilateral groin tissue debridement and EUA on 04/07/17 Empiric IV ancef F/u blood cultures--ngtd F/u wound culture--proteus mirabilis s/p 2U pRBC on 04/02 ctm CBC IV venofer for Fe def anemia Pain control, bowel regimen Supportive care Post operative recommendations include: - encourage mobilization/ambulation - encourage incentive spirometry to optimize pulmonary hygiene - DVT/GI prophylaxis as appropriate--SCDs, HSQ Home health ordered D/C plan for Tue D/w pt, RN, surgery regarding mgmt and dispo Subjective Date patient seen: Apr 09, 2017 Time patient seen: 09:00 ROS Limited/Unobtainable: No Constitutional: Reports: no symptoms HEENT: Reports: no symptoms Cardiovascular: Reports: no symptoms Respiratory: Reports: no symptoms Gastrointestinal/Abdominal: Reports: no symptoms Genitourinary: Reports: no symptoms Neurologic/Psychiatric: Reports: no symptoms Endocrine: Reports: no symptoms Hematologic/Lymphatic: Reports: no symptoms Allergies: Coded Allergies: No Known Allergies (Unverified , 03/29/17) All Systems: reviewed and negative except above Subjective No acute o/n events s/p Bilateral groin wound closure with wound vac placement POD#4 sp Bilateral groin tissue debridement and EUA POD#2 Pain controlled. Denies f/c, n/v, d/c, chest pain, SOB Tearful today Ambulating minimally Objective Last 24 Hour Vital Signs Date Time Temp Pulse Resp B/P (MAP) Pulse Ox O2 Delivery O2 Flow Rate FiO2 04/09/17 04:00 98.0 84 18 108/62 96 Room Air 04/09/17 02:31 98.3 04/09/17 00:00 97.9 84 18 106/72 97 Room Air 04/08/17 20:00 98.4 90 18 117/66 97 Room Air 04/08/17 16:00 98.3 94 18 106/68 96 Room Air 04/08/17 14:40 72 18 98 04/08/17 12:00 97.9 92 20 124/74 99 Room Air 04/08/17 08:00 98.6 85 16 114/65 100 Room Air Height (Feet): 5 Height (Inches): 10.00 Weight (Pounds): 190 Objective General: alert, cooperative, no distress, appears stated age Head: normocephalic, without obvious abnormality, atraumatic Eyes: conjunctivae/corneas clear. PERRL, EOM's intact Throat: lips, mucosa, and tongue normal. MMM Neck: supple, symmetrical, trachea midline, and no JVD Lungs: clear to auscultation bilaterally Heart: regular rate and rhythm, S1, S2 normal, no murmur, click, rub or gallop Abdomen: soft, non-tender, non-distended, bowel sounds normal; no masses or organomegaly Extremities: extremities normal, atraumatic, no cyanosis or edema Pulses: 2+ and symmetric Skin: skin color, texture, turgor normal; no rashes or lesions Neurologic: grossly normal, no focal deficits Molly Rodriguez M.D. Apr 09, 2017 07:55
[2017-04-09 08:00] VITALS: BP 126/77
[2017-04-09] MEDS: Docusate 100mg cap ORAL SCH ×2 (08:25→21:28)
[2017-04-09] MEDS: ETHINYL ESTRADIOL ORAL SCH (08:25)
[2017-04-09] MEDS: DESOGESTREL ORAL SCH (08:25)
[2017-04-09] MEDS: Heparin 5000 units/ml inj SUBQ SCH ×2 (08:27→21:36)
--- NOTE | 2017-04-09 11:15 | General Progress Note ---
Progress Note Progress Note Pt seen and examined. Doing well. Shanks out. Getting dressing changes and plan for DC on Tuesday. NBA Jordan MD Apr 09, 2017 11:15
[2017-04-09 12:00] VITALS: BP 113/72
[2017-04-09] MEDS: Nystatin Powder 100,000 units/gm 15gm TOPIC SCH (13:59)
[2017-04-09] MEDS: Dakin's 0.25% (Half Strength) 16oz TOPIC SCH (13:59)
[2017-04-09] MEDS: Norco 10mg/325mg tab ORAL PRN (14:47)
[2017-04-09 16:00] VITALS: BP 115/74
[2017-04-09] MEDS: Cephalexin 500mg cap ORAL SCH (17:44)
[2017-04-09 20:00] VITALS: BP 112/71
[2017-04-10] VITALS: BP 125/71
[2017-04-10] MEDS: Cephalexin 500mg cap ORAL SCH ×5 (00:01→23:39)
[2017-04-10 04:00] VITALS: BP 112/68
[2017-04-10 08:32] VITALS: BP 119/66
[2017-04-10] MEDS: Docusate 100mg cap ORAL SCH ×2 (09:00→21:00)
[2017-04-10] MEDS ORDERED: NS Irrig 1000ml ONE (09:24)
[2017-04-10] MEDS: ETHINYL ESTRADIOL ORAL SCH (09:38)
[2017-04-10] MEDS: DESOGESTREL ORAL SCH (09:38)
[2017-04-10] MEDS: Nystatin Powder 100,000 units/gm 15gm TOPIC SCH (09:40)
[2017-04-10] MEDS: Heparin 5000 units/ml inj SUBQ SCH ×2 (09:42→21:32)
[2017-04-10] MEDS: Dakin's 0.25% (Half Strength) 16oz TOPIC SCH (09:44)
[2017-04-10 12:50] VITALS: BP 110/73
[2017-04-10 16:00] VITALS: BP 115/69
[2017-04-10] MEDS: Norco 5mg/325mg tab ORAL PRN (19:02)
[2017-04-10 20:00] VITALS: BP 139/72
[2017-04-11 04:00] VITALS: BP 119/64
[2017-04-11] MEDS: Cephalexin 500mg cap ORAL SCH ×4 (05:09→23:19)
[2017-04-11 08:00] VITALS: BP 113/60
[2017-04-11] MEDS: Docusate 100mg cap ORAL SCH ×3 (08:27→20:55)
[2017-04-11] MEDS: Heparin 5000 units/ml inj SUBQ SCH ×2 (08:30→20:51)
[2017-04-11] MEDS: ETHINYL ESTRADIOL ORAL SCH (08:31)
[2017-04-11] MEDS: DESOGESTREL ORAL SCH (08:31)
--- NOTE | 2017-04-11 09:09 | General Progress Note ---
Assessment/Plan Problem List: (1) Abscess ICD Codes: L02.91 - Cutaneous abscess, unspecified SNOMED: 430982223 (2) Hidradenitis suppurativa ICD Codes: L73.2 - Hidradenitis suppurativa SNOMED: 99373886 (3) Acute blood loss anemia ICD Codes: D62 - Acute posthemorrhagic anemia SNOMED: 397347079 Status: stable Assessment/Plan Plastic surgery consulted s/p radical excision of bilateral infected groin tissue with flap elevation on s/p bilateral groin wound vac changes on 04/01/17 s/p bilateral groin wound closure with wound vac placement on 04/04/17 s/p bilateral groin tissue debridement and EUA on 04/07/17 s/p ancef, cont keflex 500mg q6h F/u blood cultures--ngtd F/u wound culture--proteus mirabilis s/p 2U pRBC on 04/02 ctm CBC IV venofer for Fe def anemia Pain control, bowel regimen Supportive care Post operative recommendations include: - encourage mobilization/ambulation - encourage incentive spirometry to optimize pulmonary hygiene - DVT/GI prophylaxis as appropriate--SCDs, HSQ Home health ordered for wound care D/C plan for Tue D/w pt, RN, surgery regarding mgmt and dispo Subjective Date patient seen: Apr 10, 2017 Time patient seen: 13:00 Constitutional: Reports: no symptoms HEENT: Reports: no symptoms Cardiovascular: Reports: no symptoms Respiratory: Reports: no symptoms Gastrointestinal/Abdominal: Reports: no symptoms Genitourinary: Reports: no symptoms Neurologic/Psychiatric: Reports: no symptoms Endocrine: Reports: no symptoms Hematologic/Lymphatic: Reports: no symptoms Allergies: Coded Allergies: No Known Allergies (Unverified , 03/29/17) All Systems: reviewed and negative except above Subjective No acute o/n events s/p Bilateral groin wound closure with wound vac placement POD#5 sp Bilateral groin tissue debridement and EUA POD#3 Pain controlled. Denies f/c, n/v, d/c, chest pain, SOB Better mood today Ambulating more Objective Last 24 Hour Vital Signs Date Time Temp Pulse Resp B/P (MAP) Pulse Ox O2 Delivery O2 Flow Rate FiO2 04/11/17 08:00 97.9 90 19 113/60 98 Room Air 04/11/17 05:48 97.3 04/11/17 04:00 97.3 85 18 119/64 95 Room Air 04/10/17 20:01 98.0 04/10/17 20:00 97.2 89 18 139/72 95 Room Air 04/10/17 16:00 98.0 95 20 115/69 97 Room Air 04/10/17 12:50 98.4 99 18 110/73 98 Room Air Height (Feet): 5 Height (Inches): 10.00 Weight (Pounds): 190 Objective General: alert, cooperative, no distress, appears stated age Head: normocephalic, without obvious abnormality, atraumatic Eyes: conjunctivae/corneas clear. PERRL, EOM's intact Throat: lips, mucosa, and tongue normal. MMM Neck: supple, symmetrical, trachea midline, and no JVD Lungs: clear to auscultation bilaterally Heart: regular rate and rhythm, S1, S2 normal, no murmur, click, rub or gallop Abdomen: soft, non-tender, non-distended, bowel sounds normal; no masses or organomegaly Extremities: extremities normal, atraumatic, no cyanosis or edema Pulses: 2+ and symmetric Skin: skin color, texture, turgor normal; no rashes or lesions Neurologic: grossly normal, no focal deficits Molly Rodirguez M.D. Apr 11, 2017 09:09
[2017-04-11] MEDS: Dakin's 0.25% (Half Strength) 16oz TOPIC SCH (09:44)
[2017-04-11] MEDS: Nystatin Powder 100,000 units/gm 15gm TOPIC SCH (09:44)
--- NOTE | 2017-04-11 09:44 | General Progress Note ---
Progress Note Progress Note Pt seen and examined. She is now 5 days post-op. Wounds have opened more and I debrided some of the non-viable tissue and packed wounds. Will keep one more day for wound observation and possible dc in AM, NBA Jordan MD Apr 11, 2017 09:44
[2017-04-11 12:00] VITALS: BP 113/69
[2017-04-11] MEDS: Norco 5mg/325mg tab ORAL PRN (12:30)
--- NOTE | 2017-04-11 14:43 | General Progress Note ---
Assessment/Plan Problem List: (1) Wound dehiscence ICD Codes: T81.30XA - Disruption of wound, unspecified, initial encounter SNOMED: 027420186 (2) Abscess ICD Codes: L02.91 - Cutaneous abscess, unspecified SNOMED: 584960155 (3) Hidradenitis suppurativa ICD Codes: L73.2 - Hidradenitis suppurativa SNOMED: 16401031 (4) Acute blood loss anemia ICD Codes: D62 - Acute posthemorrhagic anemia SNOMED: 026926527 Status: stable Assessment/Plan Plastic surgery consulted s/p radical excision of bilateral infected groin tissue with flap elevation on s/p bilateral groin wound vac changes on 04/01/17 s/p bilateral groin wound closure with wound vac placement on 04/04/17 s/p bilateral groin tissue debridement and EUA on 04/07/17 s/p ancef, cont keflex 500mg q6h F/u blood cultures--ngtd F/u wound culture--proteus mirabilis s/p 2U pRBC on 04/02 ctm CBC IV venofer for Fe def anemia Pain control, bowel regimen Supportive care Post operative recommendations include: - encourage mobilization/ambulation - encourage incentive spirometry to optimize pulmonary hygiene - DVT/GI prophylaxis as appropriate--SCDs, HSQ Home health ordered for wound care D/c held as wound opened up more--wound packed per surgery Possible d/c tomorrow D/w pt, RN, surgery regarding mgmt and dispo Subjective Date patient seen: Apr 11, 2017 Time patient seen: 14:42 ROS Limited/Unobtainable: No Constitutional: Reports: no symptoms HEENT: Reports: no symptoms Cardiovascular: Reports: no symptoms Respiratory: Reports: no symptoms Gastrointestinal/Abdominal: Reports: no symptoms Genitourinary: Reports: no symptoms Neurologic/Psychiatric: Reports: no symptoms Endocrine: Reports: no symptoms Hematologic/Lymphatic: Reports: no symptoms Allergies: Coded Allergies: No Known Allergies (Unverified , 03/29/17) All Systems: reviewed and negative except above Subjective No acute o/n events s/p Bilateral groin wound closure with wound vac placement POD#6 sp Bilateral groin tissue debridement and EUA POD#4 D/c held today as wounds opened up more Pain controlled. Denies f/c, n/v, d/c, chest pain, SOB Better mood today Ambulating more Objective Last 24 Hour Vital Signs Date Time Temp Pulse Resp B/P (MAP) Pulse Ox O2 Delivery O2 Flow Rate FiO2 04/11/17 12:00 97.8 88 19 113/69 99 Room Air 04/11/17 08:00 97.9 90 19 113/60 98 Room Air 04/11/17 05:48 97.3 04/11/17 04:00 97.3 85 18 119/64 95 Room Air 04/10/17 20:01 98.0 04/10/17 20:00 97.2 89 18 139/72 95 Room Air 04/10/17 16:00 98.0 95 20 115/69 97 Room Air Intake and Output 04/11/17 04/12/17 19:00 07:00 Intake Total 590 ml Balance 590 ml Intake Oral 590 ml # Voids 2 Height (Feet): 5 Height (Inches): 10.00 Weight (Pounds): 190 Objective General: alert, cooperative, no distress, appears stated age Head: normocephalic, without obvious abnormality, atraumatic Eyes: conjunctivae/corneas clear. PERRL, EOM's intact Throat: lips, mucosa, and tongue normal. MMM Neck: supple, symmetrical, trachea midline, and no JVD Lungs: clear to auscultation bilaterally Heart: regular rate and rhythm, S1, S2 normal, no murmur, click, rub or gallop Abdomen: soft, non-tender, non-distended, bowel sounds normal; no masses or organomegaly Extremities: extremities normal, atraumatic, no cyanosis or edema Pulses: 2+ and symmetric Skin: skin color, texture, turgor normal; no rashes or lesions Neurologic: grossly normal, no focal deficits Molly Rodriguez M.D. Apr 11, 2017 14:43
[2017-04-11 16:00] VITALS: BP 109/66
[2017-04-11 20:00] VITALS: BP 125/77
[2017-04-12] VITALS: BP 105/75
[2017-04-12 04:00] VITALS: BP 108/68
[2017-04-12] MEDS: Cephalexin 500mg cap ORAL SCH ×2 (05:14→12:11)
[2017-04-12 08:00] VITALS: BP 108/67
[2017-04-12] MEDS: Docusate 100mg cap ORAL SCH (09:00)
[2017-04-12] MEDS: ETHINYL ESTRADIOL ORAL SCH (09:17)
[2017-04-12] MEDS: DESOGESTREL ORAL SCH (09:17)
[2017-04-12] MEDS: Heparin 5000 units/ml inj SUBQ SCH (09:19)
[2017-04-12] MEDS: Nystatin Powder 100,000 units/gm 15gm TOPIC SCH (09:20)
[2017-04-12] MEDS: Dakin's 0.25% (Half Strength) 16oz TOPIC SCH (09:20)
[2017-04-12] MEDS: Norco 10mg/325mg tab ORAL PRN ×2 (10:17→15:22)
[2017-04-12 12:00] VITALS: BP 105/68
--- NOTE | 2017-04-12 16:46 | Discharge Summary ---
Discharge Summary Hospital Course Date of Admission Mar 29, 2017 at 11:27 Date of Discharge Apr 12, 2017 at 16:11 Admitting Diagnosis cellulities,abscess Reason for Hospitalization: abscess HPI 42y/o female with pmh of hiradenitis suppurative who presents with increased redness/swelling/pain/drainage form b/l groins. Pt notes worsening symptoms over the past several days. Denies f/c, n/v, d/c, chest pain, SOB. Able to ambulate several blocks and climb several flights of stairs w/o symptoms. Consultations Plastic surgery Procedures s/p radical excision of bilateral infected groin tissue with flap elevation on s/p bilateral groin wound vac changes on 04/01/17 s/p bilateral groin wound closure with wound vac placement on 04/04/17 s/p bilateral groin tissue debridement and exam under anesthesia on 04/07/17 Hospital Course Pt was admitted and see by plastic surgery. She was placed on IV antibiotics. She underwent radical excision of bilateral infected groin tissue with flap elevation on 03/30/17, then bilateral groin wound vac changes on 04/01/17, followed by bilateral groin wound closure with wound vac placement on 04/04/17, and finally bilateral groin tissue debridement and exam under anesthesia on 04/07. Once pain controlled and wounds stable she was discharged home with home health for wound care. Prior to d/c, pt was HD stable, tolerating PO and ambulating w/o assistance. Discharge Medications New Medications: Cephalexin* (Keflex*) 500 Mg Capsule 500 MG ORAL Q6H for 7 Days, #28 CAP 0 Refills Hydrocodone Bit/Acetaminophen 5-325* ([place] 5-325*) 1 Each Tablet 1 TAB ORAL Q4H PRN for 40 Days, TAB Continued Medications: Desogestrel-Ethinyl Estradiol (Enskyce) 1 Each Tablet 1 EACH PO, TAB Discharge Condition Upon Discharge: stable Discharge Disposition Patient was discharged to Home with Home Health(06) Discharge Diagnoses: (1) Hidradenitis suppurativa (2) Abscess (3) Cellulitis (4) Wound dehiscence (5) Acute blood loss anemia Molly Rodriguez M.D. Apr 12, 2017 16:46
== END 2017-04-12 16:11 | disposition home health service (06) | DRG 574 ==
LOC: EMR 10:50 → 4E 11:27 → EDBEDREQ 11:30 → 3E 14:53
PROC: 0H8HXZZ Division of Right Upper Leg Skin, External Approach (ICD-10-PCS; principal; 2017-03-30 14:30)
PROC: 0JB80ZZ Excision of Abdomen Subcutaneous Tissue and Fascia, Open Approach (ICD-10-PCS; principal; 2017-03-30 14:30)
PROC: 0H8JXZZ Division of Left Upper Leg Skin, External Approach (ICD-10-PCS; principal; 2017-03-30 14:30)
PROC: 2W06X6Z Change Pressure Dressing on Right Inguinal Region (ICD-10-PCS; 2017-04-01)
PROC: 2W07X6Z Change Pressure Dressing on Left Inguinal Region (ICD-10-PCS; 2017-04-01)
PROC: 30233N1 Transfusion of Nonautologous Red Blood Cells into Peripheral Vein, Percutaneous Approach (ICD-10-PCS; 2017-04-02)
PROC: 0JXM0ZZ Transfer Left Upper Leg Subcutaneous Tissue and Fascia, Open Approach (ICD-10-PCS; 2017-04-04)
PROC: 0JXL0ZZ Transfer Right Upper Leg Subcutaneous Tissue and Fascia, Open Approach (ICD-10-PCS; 2017-04-04)
PROC: 0JB80ZZ Excision of Abdomen Subcutaneous Tissue and Fascia, Open Approach (ICD-10-PCS; 2017-04-07)
DX: L02.214 Cutaneous abscess of groin (principal); T81.31XA Disruption of external operation (surgical) wound, not elsewhere classified, initial encounter; D62 Acute posthemorrhagic anemia; L73.2 Hidradenitis suppurativa; L03.314 Cellulitis of groin; Z98.84 Bariatric surgery status
CPT/HCPCS: 36415; 71010; 80048; 80053; 81003; 81025; 82550; 82553; 83605; 83690; 84484; 85007; 85025; 85610; 85730; 86850; 86900; 86901; 86920; 87040; 87070; 87075; 87181; 87205; 93005; 94003; 94150; 94760; 99285; J2180; J2250; J2405

== ENCOUNTER 2017-04-16 13:05 | Inpatient (IN) | payer BC ==
[~2017-04-16] VITALS: Ht 177.8 cm; Wt 86.2 kg
[~2017-04-16 13:05] MED LIST: ENSKYCE1 EACH PO; KEFLEX500 MG ORAL; NORCO 5-325 TA1 EACH ORAL
[2017-04-16 13:26] VITALS: BP 96/61
--- NOTE | 2017-04-16 13:40 | Emergency Room Report ---
History of Present Illness General Chief Complaint: General Complaint Source: Patient Present Illness HPI Patient present with complaints of wound dehiscence Patient had recent complex surgery in the inguinal region There has been increased discharge and discomfort Questionable low-grade fever Patient denies any chest pain or short of breath denies abdominal pain Denies any dysuria frequency Allergies: Coded Allergies: No Known Allergies (Unverified , 03/29/17) Patient History Past Medical History: see triage record Pertinent Family History: none Reviewed Nursing Documentation: PMH: Agreed, PSxH: Agreed Nursing Documentation-PMH Past Medical History: No History, Except For Hx Cardiac Problems: No - HIDRADENITIS SUPPURATIVA Hx Hypertension: No - ANEMIA Hx Pacemaker: No Hx Asthma: No Hx COPD: No Hx Diabetes: No Hx Cancer: No Hx Gastrointestinal Problems: No Hx Dialysis: No History Of Psychiatric Problem: No Hx Neurological Problems: No Hx Seizures: No Review of Systems All Other Systems: negative except mentioned in HPI Physical Exam Vital Signs Date Time Temp Pulse Resp B/P (MAP) Pulse Ox O2 Delivery O2 Flow Rate FiO2 04/16/17 13:16 97.2 114 16 95/59 95 Room Air Sp02 EP Interpretation: reviewed, normal General Appearance: mild distress - appears mildly uncomfortable Head: normocephalic, atraumatic Eyes: bilateral eye PERRL, bilateral eye EOMI ENT: hearing grossly normal, normal pharynx, TMs + canals normal, uvula midline Neck: full range of motion, supple, no meningismus, no bony tend Respiratory: lungs clear, normal breath sounds, no rhonchi, no respiratory distress, no retraction, no accessory muscle use Cardiovascular #1: normal peripheral pulses, regular rate, rhythm, no edema, no gallop, no JVD, no murmur Gastrointestinal: normal bowel sounds, non tender, soft, no mass, no organomegaly, non-distended, no guarding, no hernia, no pulsatile mass, no rebound Musculoskeletal: normal inspection Neurologic: oriented x3, responsive, stadium manager III-XII nml as tested, motor strength/ tone normal, sensory intact Psychiatric: mood/affect normal Skin: other - Patient has wound dehiscence bilaterally, there is some yellowish discharge mild erythema, patient is tender to palpation the area is fairly significant starting at the upper inguinal region traversing through to the back Lymphatic: normal inspection, no adenopathy Medical Decision Making Diagnostic Impression: Primary Impression: Wound dehiscence Additional Impression: Cellulitis ER Course Given the appearance and evaluation of the area Patient had initial blood work initiated Requires surgical reevaluation and consultation and was admitted for further care Labs Test 04/16/17 13:45 White Blood Count 18.0 K/UL (4.8-10.8) Red Blood Count 3.84 M/UL (4.20-5.40) Hemoglobin 9.8 G/DL (12.0-16.0) Hematocrit 32.3 % (37.0-47.0) Mean Corpuscular Volume 84 FL (80-99) Mean Corpuscular Hemoglobin 25.5 PG (27.0-31.0) Mean Corpuscular Hemoglobin Concent 30.3 G/DL (32.0-36.0) Red Cell Distribution Width 17.1 % (11.6-14.8) Platelet Count 675 K/UL (150-450) Mean Platelet Volume 4.8 FL (6.5-10.1) Neutrophils (%) (Auto) % (45.0-75.0) Lymphocytes (%) (Auto) % (20.0-45.0) Monocytes (%) (Auto) % (1.0-10.0) Eosinophils (%) (Auto) % (0.0-3.0) Basophils (%) (Auto) % (0.0-2.0) Differential Total Cells Counted 100 Neutrophils % (Manual) 83 % (45-75) Lymphocytes % (Manual) 8 % (20-45) Monocytes % (Manual) 6 % (1-10) Eosinophils % (Manual) 3 % (0-3) Basophils % (Manual) 0 % (0-2) Band Neutrophils 0 % (0-8) Platelet Estimate Increased Platelet Morphology Normal Anisocytosis 1+ Stomatocytes 1+ [place] Cells 1+ Sodium Level 134 mEQ/L (135-145) Potassium Level 3.4 mEQ/L (3.4-4.9) Chloride Level 100 mEQ/L (98-107) Carbon Dioxide Level 25 mEQ/L (20-30) Anion Gap 9 (5-15) Blood Urea Nitrogen 8 mg/dL (7-23) Creatinine 0.4 mg/dL (0.5-0.9) Estimat Glomerular Filtration Rate > 60 mL/min (>60) Glucose Level 98 mg/dL (74-106) Calcium Level 7.2 mg/dL (8.6-10.2) Total Bilirubin < 0.2 mg/dL (0.0-1.2) Aspartate Amino Transf (AST/SGOT) 10 U/L (5-40) Alanine Aminotransferase (ALT/SGPT) 7 U/L (3-33) Alkaline Phosphatase 143 U/L (35-104) Total Protein 5.7 g/dL (6.6-8.7) Albumin 1.6 g/dL (3.5-5.2) Globulin 4.1 g/dL Albumin/Globulin Ratio 0.3 (1.0-2.7) Last Vital Signs Date Time Temp Pulse Resp B/P (MAP) Pulse Ox O2 Delivery O2 Flow Rate FiO2 04/16/17 13:16 97.2 114 16 95/59 95 Room Air Status: improved Disposition: ADMITTED INPATIENT Condition: Serious DIEGO SAMAYOA D.O. Apr 16, 2017 13:40
[2017-04-16] MEDS ORDERED: ceFAZolin 1gm/50ml Premix 50 ML IV ONE (14:00)
[2017-04-16 14:20] LABS: MEAN CORPUSCULAR HEMOGLOBIN 25.5 PG (27.0-31.0); MEAN CORPUSCULAR HGB CONC 30.3 G/DL (32.0-36.0); MEAN CORPUSCULAR VOLUME 84 FL (80-99); MEAN PLATELET VOLUME 4.8 FL (6.5-10.1); PLATELET COUNT 675 K/UL (150-450); RED BLOOD COUNT 3.84 M/UL (4.20-5.40); RED CELL DISTRIBUTION WIDTH 17.1 % (11.6-14.8)
[2017-04-16 14:34] LABS: ALANINE AMINOTRANSFERASE 7 U/L (3-33); ALBUMIN/GLOBULIN RATIO 0.3 (1.0-2.7); ANION GAP 9 (5-15); ASPARTATE AMINO TRANSFERASE 10 U/L (5-40); CALCIUM 7.2 mg/dL (8.6-10.2); CARBON DIOXIDE 25 mEQ/L (20-30); CHLORIDE 100 mEQ/L (98-107); CREATININE 0.4 mg/dL (0.5-0.9); GLOMERULAR FILTRATION RATE > 60 mL/min (>60); HEMOLYSIS 15; POTASSIUM 3.4 mEQ/L (3.4-4.9); SODIUM 134 mEQ/L (135-145); TOTAL PROTEIN 5.7 g/dL (6.6-8.7)
[2017-04-16 14:42] LABS: EOSINOPHILS % (MANUAL) 3 % (0-3); LYMPHOCYTES % (MANUAL) 8 % (20-45); NEUTROPHILS % (MANUAL) 83 % (45-75); TOTAL CELLS COUNTED 100
[2017-04-16 14:43] LABS: ANISOCYTOSIS 1+; BAND NEUTROPHILS % (MANUAL) 0 % (0-8); BASOPHILS % (MANUAL) 0 % (0-2); BURR CELLS 1+; PLATELET ESTIMATE INCREASED; PLATELET MORPHOLOGY NORMAL; STOMATOCYTES 1+
[2017-04-16 15:00] VITALS: BP 98/62
[2017-04-16] MEDS ORDERED: Milk of Magnesia 30ml Ud ORAL PRN (15:15)
[2017-04-16] MEDS ORDERED: Zolpidem 5mg tab ORAL PRN (15:15)
[2017-04-16] MEDS ORDERED: Mylanta II UD 30ml ORAL PRN (15:15)
--- NOTE | 2017-04-16 15:41 | History and Physical ---
History of Present Illness General Date patient seen: Apr 16, 2017 Time patient seen: 15:41 Reason for Hospitalization: Wound dehiscense Present Illness HPI 42y/o female with pmh of hidradenitis suppurative s/p radical excision of bilateral infected groin tissue with flap elevation on 03/30/17, then bilateral groin wound vac changes on 04/01/17, followed by bilateral groin wound closure with wound vac placement on 04/04/17, and finally bilateral groin tissue debridement and exam under anesthesia on 04/07/17 who presents with concern for wound dehiscence. Pt recently admitted 03/29-04/12 and underwent multiple surgical procedures and was discharged home w/ home health for wound care and with PO antibiotics. Pt notes compliance with antibiotics and was receiving wound care at home. However, pt noted to have dehiscence of her wounds. Pt notes increased redness/swelling/pain/drainage at groin sites. Denies f/c, n/v, d/c, chest pain, SOB. Allergies: Coded Allergies: No Known Allergies (Unverified , 03/29/17) Medication History Scheduled Cephalexin* (Keflex*), 500 MG ORAL Q6H Desogestrel-Ethinyl Estradiol (Enskyce), 1 EACH PO DAILY, (Reported) Scheduled PRN Hydrocodone Bit/Acetaminophen 5-325* ([place] 5-325*), 1 TAB ORAL Q4H PRN Patient History History Provided By: Patient, Medical Record, PMD Healthcare decision maker Resuscitation status Advanced Directive on File Past Medical/Surgical History Past Medical/Surgical History: (1) Hidradenitis suppurativa Family History Family History: Patient reports no known family medical history. Social History Social History: (1) No significant social history Review of Systems ROS Narrative CONSTITUTIONAL: No weight loss, fever, chills, weakness or fatigue. HEENT: Eyes: No visual loss, blurred vision, double vision or yellow sclerae. Ears, Nose, Throat: No hearing loss, sneezing, congestion, runny nose or sore throat. SKIN: No rash or itching. CARDIOVASCULAR: No chest pain, chest pressure or chest discomfort. No palpitations or edema. RESPIRATORY: No shortness of breath, cough or sputum. GASTROINTESTINAL: No anorexia, nausea, vomiting or diarrhea. No abdominal pain or blood. NEUROLOGICAL: No headache, dizziness, syncope, paralysis, ataxia, numbness or tingling in the extremities. No change in bowel or bladder control. MUSCULOSKELETAL: No muscle, back pain, joint pain or stiffness. HEMATOLOGIC: No anemia, bleeding or bruising. LYMPHATICS: No enlarged nodes. No history of splenectomy. PSYCHIATRIC: No history of depression or anxiety. ENDOCRINOLOGIC: No reports of sweating, cold or heat intolerance. No polyuria or polydipsia. ALLERGIES: No history of asthma, hives, eczema or rhinitis. Physical Exam Physical Exam Narrative General: alert, cooperative, no distress, appears stated age Head: normocephalic, without obvious abnormality, atraumatic Eyes: conjunctivae/corneas clear. PERRL, EOM's intact Throat: lips, mucosa, and tongue normal. MMM Neck: supple, symmetrical, trachea midline, and no JVD Lungs: clear to auscultation bilaterally Heart: regular rate and rhythm, S1, S2 normal, no murmur, click, rub or gallop Abdomen: soft, non-tender, non-distended, bowel sounds normal; no masses or organomegaly Extremities: extremities normal, atraumatic, no cyanosis or edema Pulses: 2+ and symmetric Skin: +HS lesions of b/l groins Neurologic: grossly normal, no focal deficits Last 24 Hour Vital Signs Date Time Temp Pulse Resp B/P (MAP) Pulse Ox O2 Delivery O2 Flow Rate FiO2 04/16/17 13:16 97.2 114 16 95/59 95 Room Air Laboratory Tests Test 04/16/17 13:45 White Blood Count 18.0 K/UL (4.8-10.8) H Red Blood Count 3.84 M/UL (4.20-5.40) L Hemoglobin 9.8 G/DL (12.0-16.0) L Hematocrit 32.3 % (37.0-47.0) L Mean Corpuscular Volume 84 FL (80-99) Mean Corpuscular Hemoglobin 25.5 PG (27.0-31.0) L Mean Corpuscular Hemoglobin Concent 30.3 G/DL (32.0-36.0) L Red Cell Distribution Width 17.1 % (11.6-14.8) H Platelet Count 675 K/UL (150-450) H Mean Platelet Volume 4.8 FL (6.5-10.1) L Neutrophils (%) (Auto) % (45.0-75.0) Lymphocytes (%) (Auto) % (20.0-45.0) Monocytes (%) (Auto) % (1.0-10.0) Eosinophils (%) (Auto) % (0.0-3.0) Basophils (%) (Auto) % (0.0-2.0) Differential Total Cells Counted 100 Neutrophils % (Manual) 83 % (45-75) H Lymphocytes % (Manual) 8 % (20-45) L Monocytes % (Manual) 6 % (1-10) Eosinophils % (Manual) 3 % (0-3) Basophils % (Manual) 0 % (0-2) Band Neutrophils 0 % (0-8) Platelet Estimate Increased H Platelet Morphology Normal Anisocytosis 1+ Stomatocytes 1+ [place]imah Cells 1+ Sodium Level 134 mEQ/L (135-145) L Potassium Level 3.4 mEQ/L (3.4-4.9) Chloride Level 100 mEQ/L (98-107) Carbon Dioxide Level 25 mEQ/L (20-30) Anion Gap 9 (5-15) Blood Urea Nitrogen 8 mg/dL (7-23) Creatinine 0.4 mg/dL (0.5-0.9) L Estimat Glomerular Filtration Rate > 60 mL/min (>60) Glucose Level 98 mg/dL (74-106) Calcium Level 7.2 mg/dL (8.6-10.2) L Total Bilirubin < 0.2 mg/dL (0.0-1.2) Aspartate Amino Transf (AST/SGOT) 10 U/L (5-40) Alanine Aminotransferase (ALT/SGPT) 7 U/L (3-33) Alkaline Phosphatase 143 U/L (35-104) H Total Protein 5.7 g/dL (6.6-8.7) L Albumin 1.6 g/dL (3.5-5.2) L Globulin 4.1 g/dL Albumin/Globulin Ratio 0.3 (1.0-2.7) L Height (Feet): 5 Height (Inches): 10.00 Weight (Pounds): 190 Medications Current Medications Medications (Trade) Dose Ordered Sig/Drea Route PRN Reason Start Time Stop Time Status Last Admin Dose Admin Acetaminophen (Tylenol) 650 mg Q4H PRN ORAL Mild Pain (Pain Scale 1-3) 04/16/17 15:15 05/16/17 15:14 Al Hydroxide/Mg Hydroxide (Mylanta II) 30 ml Q6H PRN ORAL dyspepsia 04/16/17 15:15 05/16/17 15:14 Dextrose (Dextrose 50%) STAT PRN IV Hypoglycemia 04/16/17 15:15 05/16/17 15:14 Diphenhydramine HCl (Benadryl) 25 mg Q6H PRN ORAL Itching/Pruritis 04/16/17 15:15 05/16/17 15:14 Docusate Sodium (Colace) 100 mg EVERY 12 HOURS ORAL 04/16/17 21:00 05/16/17 20:59 Heparin Sodium (Porcine) (Heparin 5000 units/ml) 5,000 units EVERY 12 HOURS SUBQ 04/16/17 21:00 05/16/17 20:59 Magnesium Hydroxide (Mom) 30 ml HSPRN PRN ORAL Constipation 04/16/17 15:15 05/16/17 15:14 Morphine Sulfate (Morphine Sulfate) 2 mg Q3H PRN IVP Moderate Pain (Pain Scale 4-6) 04/16/17 15:15 04/23/17 15:14 Morphine Sulfate (Morphine Sulfate) 4 mg Q3H PRN IVP Severe Pain (Pain Scale 7-10) 04/16/17 15:15 04/23/17 15:14 Ondansetron HCl (Zofran) 4 mg Q6H PRN IVP Nausea & Vomiting 04/16/17 15:15 05/16/17 15:14 Vancomycin HCl (Vanco rx to dose) 1 ea DAILY PRN MISC Per rx protocol 04/16/17 15:15 05/16/17 15:14 Vancomycin HCl/ Dextrose 250 ml @ 166.667 mls/hr Q12HR@0400,1600 IVPB 04/16/17 16:00 04/21/17 15:59 Zolpidem Tartrate (Ambien) 5 mg HSPRN PRN ORAL Insomnia 04/16/17 15:15 04/23/17 15:14 Assessment/Plan Problem List: (1) Wound dehiscence ICD Codes: T81.30XA - Disruption of wound, unspecified, initial encounter SNOMED: 218531187 (2) Cellulitis ICD Codes: L03.90 - Cellulitis, unspecified SNOMED: 444709584 (3) Hidradenitis suppurativa ICD Codes: L73.2 - Hidradenitis suppurativa SNOMED: 31755158 (4) Leukocytosis ICD Codes: D72.829 - Elevated white blood cell count, unspecified SNOMED: 578763382, 663685620 (5) Hypoalbuminemia ICD Codes: E88.09 - Other disorders of plasma-protein metabolism, not elsewhere classified SNOMED: 731315904 Status: stable Assessment/Plan Admit inpt Plastic surgery consulted Empiric vanco IV for coverage of MRSA Trend CBC Wound care per surgery: wet to dry dressing BID w/ dakin's solution Pain control, supportive care, bowel regimen Pt will require 2-3 days of inpatient care for IV abx and wound care Nutritional eval FULL CODE D/w pt, RN, surgery regarding mgmt and dispo Molly Rodriguez M.D. Apr 16, 2017 15:41
[2017-04-16 16:00] VITALS: BP 113/65
[2017-04-16] MEDS: Vancomycin 1250mg/D5W 250ml IVPB SCH (16:45)
[2017-04-16] MEDS: Dakin's 0.25% (Half Strength) 16oz TOPIC SCH (18:00)
[2017-04-16] MEDS: Morphine Sulfate 2mg/ml Inj IVP PRN ×2 (18:02→21:38)
[2017-04-16 20:00] VITALS: BP 117/66
[2017-04-16] MEDS: Docusate 100mg cap ORAL SCH (21:00)
[2017-04-16] MEDS: Heparin 5000 units/ml inj SUBQ SCH (21:29)
[2017-04-17] VITALS: BP 115/61
[2017-04-17] MEDS: Morphine Sulfate 4mg/ml Inj IVP PRN ×6 (00:53→18:14)
[2017-04-17 04:00] VITALS: BP 109/64
[2017-04-17] MEDS: Vancomycin 1250mg/D5W 250ml IVPB SCH ×2 (04:08→15:49)
[2017-04-17] MEDS: Dakin's 0.25% (Half Strength) 16oz TOPIC SCH ×2 (06:20→17:34)
[2017-04-17 08:38] VITALS: BP 106/62
[2017-04-17] MEDS: Docusate 100mg cap ORAL SCH ×2 (08:57→20:04)
[2017-04-17] MEDS: Heparin 5000 units/ml inj SUBQ SCH ×2 (08:57→20:04)
[2017-04-17] MEDS: Morphine Sulfate 2mg/ml Inj IVP PRN ×2 (09:46→22:19)
--- NOTE | 2017-04-17 10:12 | General Progress Note ---
Progress Note Progress Note Pt seen and examined. Readmitted for wound issues. Restarted on abx and will need Dakins solution dressing BID. Debrided some of the nonviable tissues in right groin. Will also need nystatin powder to groins. Will likely dc in 2-3 days. Nba Vásquez M.D. NBA VÁSQUEZ Apr 17, 2017 10:12
[2017-04-17 11:27] LABS: BASOPHILS % (AUTO) 0.5 % (0.0-2.0); EOSINOPHILS % (AUTO) 1.2 % (0.0-3.0); LYMPHOCYTES % (AUTO) 14.9 % (20.0-45.0); MEAN CORPUSCULAR HGB CONC 30.7 G/DL (32.0-36.0); MEAN CORPUSCULAR VOLUME 85 FL (80-99); MEAN PLATELET VOLUME 4.9 FL (6.5-10.1); MONOCYTES % (AUTO) 4.3 % (1.0-10.0); NEUTROPHILS % (AUTO) 79.2 % (45.0-75.0); PLATELET COUNT 649 K/UL (150-450); RED BLOOD COUNT 3.67 M/UL (4.20-5.40); RED CELL DISTRIBUTION WIDTH 17.3 % (11.6-14.8); WHITE BLOOD COUNT 13.9 K/UL (4.8-10.8)
[2017-04-17 11:48] LABS: ANION GAP 9 (5-15); CALCIUM 7.1 mg/dL (8.6-10.2); CARBON DIOXIDE 26 mEQ/L (20-30); CHLORIDE 105 mEQ/L (98-107); CREATININE 0.4 mg/dL (0.5-0.9); GLOMERULAR FILTRATION RATE > 60 mL/min (>60); HEMOLYSIS 0; POTASSIUM 3.6 mEQ/L (3.4-4.9); SODIUM 140 mEQ/L (135-145)
[2017-04-17 12:02] LABS: ALANINE AMINOTRANSFERASE 13 U/L (3-33); ASPARTATE AMINO TRANSFERASE 49 U/L (5-40); BILIRUBIN,DIRECT 0.1 mg/dL (0.1-0.3)
[2017-04-17 12:12] LABS: TOTAL PROTEIN 5.4 g/dL (6.6-8.7)
[2017-04-17 12:35] VITALS: BP 110/74
[2017-04-17] MEDS ORDERED: NS Irrig 1000ml ONE (15:03)
[2017-04-17] MEDS ORDERED: Tubing IV Secondary IV ONE ×2 (15:03)
[2017-04-17 15:50] VITALS: BP 113/40
[2017-04-17] MEDS: Nystatin Powder 100,000 units/gm 15gm TOPIC SCH (17:34)
--- NOTE | 2017-04-17 19:06 | General Progress Note ---
Assessment/Plan Problem List: (1) Abscess ICD Codes: L02.91 - Cutaneous abscess, unspecified SNOMED: 030453938 (2) Cellulitis ICD Codes: L03.90 - Cellulitis, unspecified SNOMED: 103252908 (3) Wound dehiscence ICD Codes: T81.30XA - Disruption of wound, unspecified, initial encounter SNOMED: 304160907 (4) Leukocytosis ICD Codes: D72.829 - Elevated white blood cell count, unspecified SNOMED: 321531466, 934585064 (5) Hypoalbuminemia ICD Codes: E88.09 - Other disorders of plasma-protein metabolism, not elsewhere classified SNOMED: 444356768 (6) Hidradenitis suppurativa ICD Codes: L73.2 - Hidradenitis suppurativa SNOMED: 24542292 (7) Acute blood loss anemia ICD Codes: D62 - Acute posthemorrhagic anemia SNOMED: 773481141 Status: progressing Assessment/Plan s/p debridement of nonviable tissue in right groin Plastic surgery consulted. appreciate recs Empiric vanco IV for coverage of MRSA Leuks downtrending. Trend CBC Wound care per surgery: wet to dry dressing BID w/ dakin's solution Nystatin powder to groin Pain control, supportive care, bowel regimen Pt will require 2-3 days of inpatient care for IV abx and wound care Nutritional eval FULL CODE D/w pt, RN, surgery regarding mgmt and dispo Subjective Date patient seen: Apr 17, 2017 Allergies: Coded Allergies: No Known Allergies (Unverified , 03/29/17) Subjective Seen by plastic surgery. s/p debridement to nonviable tissue in right groin WBC trending down No cp, f/c, sob Objective Last 24 Hour Vital Signs Date Time Temp Pulse Resp B/P (MAP) Pulse Ox O2 Delivery O2 Flow Rate FiO2 04/17/17 16:21 98.0 04/17/17 15:50 80 18 113/40 100 Room Air 04/17/17 14:43 98.0 04/17/17 12:35 98.0 83 20 110/74 100 Room Air 04/17/17 10:16 97.6 04/17/17 08:38 97.6 85 20 106/62 99 Room Air 04/17/17 04:00 98.4 85 18 109/64 98 Room Air 04/17/17 00:00 98.5 88 18 115/61 98 Room Air 04/16/17 20:00 97.8 97 18 117/66 95 Room Air Intake and Output 04/17/17 04/18/17 19:00 07:00 Intake Total 1220 ml Balance 1220 ml Intake Oral 720 ml IV Total 500 ml # Voids 3 Laboratory Tests 04/17/17 10:00: White Blood Count 13.9H, Red Blood Count 3.67L, Hemoglobin 9.6L, Hematocrit 31.2L, Mean Corpuscular Volume 85, Mean Corpuscular Hemoglobin 26.0L, Mean Corpuscular Hemoglobin Concent 30.7L, Red Cell Distribution Width 17.3H, Platelet Count 649H, Mean Platelet Volume 4.9L, Neutrophils (%) (Auto) 79.2H, Lymphocytes (%) (Auto) 14.9L, Monocytes (%) (Auto) 4.3, Eosinophils (%) (Auto) 1.2, Basophils (%) (Auto) 0.5, Sodium Level 140, Potassium Level 3.6, Chloride Level 105, Carbon Dioxide Level 26, Anion Gap 9, Blood Urea Nitrogen 4L, Creatinine 0.4L, Estimat Glomerular Filtration Rate > 60, Glucose Level 82, Calcium Level 7.1L, Total Bilirubin < 0.2, Direct Bilirubin 0.1, Aspartate Amino Transf (AST/SGOT) 49H, Alanine Aminotransferase (ALT/SGPT) 13, Alkaline Phosphatase 195H, Total Protein 5.4L, Albumin 1.7L Height (Feet): 5 Height (Inches): 10.00 Weight (Pounds): 190 General Appearance: no apparent distress EENT: PERRL/EOMI Neck: non-tender, normal alignment, supple Cardiovascular: normal peripheral pulses, normal rate, regular rhythm Respiratory/Chest: chest wall non-tender, lungs clear, normal breath sounds Abdomen: normal bowel sounds, non tender, soft Pelvis: other - +HS lesions to bilateral groins Extremities: normal range of motion, non-tender Neurologic: mortgage loan processing clerk II-XII grossly normal Sol Sparks N.P. Apr 17, 2017 19:06
[2017-04-17 20:00] VITALS: BP 110/66
[2017-04-18] MEDS: Morphine Sulfate 4mg/ml Inj IVP PRN ×6 (02:16→22:25)
[2017-04-18 04:00] VITALS: BP 109/59
[2017-04-18 04:03] LABS: BASOPHILS % (AUTO) 0.5 % (0.0-2.0); EOSINOPHILS % (AUTO) 1.8 % (0.0-3.0); LYMPHOCYTES % (AUTO) 15.1 % (20.0-45.0); MEAN CORPUSCULAR HEMOGLOBIN 27.6 PG (27.0-31.0); MEAN CORPUSCULAR HGB CONC 32.8 G/DL (32.0-36.0); MEAN CORPUSCULAR VOLUME 84 FL (80-99); MEAN PLATELET VOLUME 4.9 FL (6.5-10.1); MONOCYTES % (AUTO) 6.9 % (1.0-10.0); NEUTROPHILS % (AUTO) 75.7 % (45.0-75.0); PLATELET COUNT 535 K/UL (150-450); RED BLOOD COUNT 3.33 M/UL (4.20-5.40); RED CELL DISTRIBUTION WIDTH 17.1 % (11.6-14.8)
[2017-04-18 04:17] LABS: ANION GAP 10 (5-15); CARBON DIOXIDE 24 mEQ/L (20-30); CHLORIDE 104 mEQ/L (98-107); CREATININE 0.3 mg/dL (0.5-0.9); GLOMERULAR FILTRATION RATE > 60 mL/min (>60); HEMOLYSIS 0; POTASSIUM 3.2 mEQ/L (3.4-4.9); SODIUM 138 mEQ/L (135-145)
[2017-04-18] MEDS: Vancomycin 1250mg/D5W 250ml IVPB SCH (05:15)
[2017-04-18 08:00] VITALS: BP 119/67
[2017-04-18] MEDS: Docusate 100mg cap ORAL SCH ×2 (08:38→20:33)
[2017-04-18] MEDS: Heparin 5000 units/ml inj SUBQ SCH ×2 (08:40→20:35)
[2017-04-18] MEDS: Dakin's 0.25% (Half Strength) 16oz TOPIC SCH ×2 (08:45→20:32)
[2017-04-18] MEDS: Nystatin Powder 100,000 units/gm 15gm TOPIC SCH ×2 (08:45→20:54)
[2017-04-18 12:00] VITALS: BP 104/64
[2017-04-18] MEDS: Vancomycin 1.5 GM/D5W 250ML IVPB SCH ×2 (12:17→20:31)
[2017-04-18 16:00] VITALS: BP 106/63
--- NOTE | 2017-04-18 16:23 | General Progress Note ---
Assessment/Plan Problem List: (1) Wound dehiscence ICD Codes: T81.30XA - Disruption of wound, unspecified, initial encounter SNOMED: 886852481 (2) Cellulitis ICD Codes: L03.90 - Cellulitis, unspecified SNOMED: 986958341 (3) Hidradenitis suppurativa ICD Codes: L73.2 - Hidradenitis suppurativa SNOMED: 26727337 (4) Leukocytosis ICD Codes: D72.829 - Elevated white blood cell count, unspecified SNOMED: 636630848, 925677302 (5) Hypoalbuminemia ICD Codes: E88.09 - Other disorders of plasma-protein metabolism, not elsewhere classified SNOMED: 161255224 (6) Hypokalemia ICD Codes: E87.6 - Hypokalemia SNOMED: 96650644 Status: stable Assessment/Plan Plastic surgery consulted. appreciate recs s/p bedside debridement of nonviable tissue in right groin on 04/17/17 Empiric vanco IV for coverage of MRSA Leuks downtrending Wound care per surgery: wet to dry dressing BID w/ dakin's solution Nystatin powder to groin Pain control, supportive care, bowel regimen Pt will require 2-3 days of inpatient care for IV abx and wound care Nutritional eval Replete K DC likel Wed per surgery FULL CODE D/w pt, RN, surgery regarding mgmt and dispo Subjective Date patient seen: Apr 18, 2017 Time patient seen: 15:00 Constitutional: Reports: no symptoms HEENT: Reports: no symptoms Cardiovascular: Reports: no symptoms Respiratory: Reports: no symptoms Gastrointestinal/Abdominal: Reports: no symptoms Genitourinary: Reports: no symptoms Neurologic/Psychiatric: Reports: no symptoms Endocrine: Reports: no symptoms Hematologic/Lymphatic: Reports: no symptoms Allergies: Coded Allergies: No Known Allergies (Unverified , 03/29/17) Subjective No acute o/n events WBC trending down K low, being repleted Pt doing well. Pain controlled. +BM today. Denies f/c, n/v, d/c, chest pain, SOB Objective Last 24 Hour Vital Signs Date Time Temp Pulse Resp B/P (MAP) Pulse Ox O2 Delivery O2 Flow Rate FiO2 04/18/17 12:00 98.2 84 19 104/64 97 Room Air 04/18/17 08:00 98.2 91 19 119/67 97 Room Air 04/18/17 04:00 98.0 80 18 109/59 98 Room Air 04/17/17 20:00 99.2 95 18 110/66 97 Room Air 04/17/17 18:44 98.0 04/17/17 16:21 98.0 Intake and Output 04/18/17 04/19/17 19:00 07:00 Intake Total 900 ml Balance 900 ml Intake Oral 650 ml IV Total 250 ml # Voids 2 Laboratory Tests 04/18/17 03:15: White Blood Count 12.0H, Red Blood Count 3.33L, Hemoglobin 9.2L, Hematocrit 27.9L, Mean Corpuscular Volume 84, Mean Corpuscular Hemoglobin 27.6, Mean Corpuscular Hemoglobin Concent 32.8, Red Cell Distribution Width 17.1H, Platelet Count 535H, Mean Platelet Volume 4.9L, Neutrophils (%) (Auto) 75.7H, Lymphocytes (%) (Auto) 15.1L, Monocytes (%) (Auto) 6.9, Eosinophils (%) (Auto) 1.8, Basophils (%) (Auto) 0.5, Sodium Level 138, Potassium Level 3.2L, Chloride Level 104, Carbon Dioxide Level 24, Anion Gap 10, Blood Urea Nitrogen 5L, Creatinine 0.3L, Estimat Glomerular Filtration Rate > 60, Glucose Level 89, Calcium Level 7.0L, Vancomycin Level Trough 4.9L Height (Feet): 5 Height (Inches): 10.00 Weight (Pounds): 190 Objective General: alert, cooperative, no distress, appears stated age Head: normocephalic, without obvious abnormality, atraumatic Eyes: conjunctivae/corneas clear. PERRL, EOM's intact Throat: lips, mucosa, and tongue normal. MMM Neck: supple, symmetrical, trachea midline, and no JVD Lungs: clear to auscultation bilaterally Heart: regular rate and rhythm, S1, S2 normal, no murmur, click, rub or gallop Abdomen: soft, non-tender, non-distended, bowel sounds normal; no masses or organomegaly Extremities: extremities normal, atraumatic, no cyanosis or edema Pulses: 2+ and symmetric Skin: +HS lesions of b/l groins w/ dressings c/d/i Neurologic: grossly normal, no focal deficits Molly Rodriguez M.D. Apr 18, 2017 16:23
[2017-04-18 20:00] VITALS: BP 104/58
[2017-04-19] VITALS: BP 124/60
[2017-04-19] MEDS: Morphine Sulfate 4mg/ml Inj IVP PRN ×6 (03:39→22:26)
[2017-04-19] MEDS: Vancomycin 1gm in Dextrose 275ml IVPB SCH ×3 (03:50→20:59)
[2017-04-19 04:00] VITALS: BP 110/69
[2017-04-19 08:00] VITALS: BP 105/64
[2017-04-19] MEDS: Heparin 5000 units/ml inj SUBQ SCH ×2 (08:41→21:01)
[2017-04-19] MEDS: Docusate 100mg cap ORAL SCH ×2 (08:43→21:00)
[2017-04-19] MEDS: Dakin's 0.25% (Half Strength) 16oz TOPIC SCH ×2 (08:46→18:17)
[2017-04-19] MEDS: Nystatin Powder 100,000 units/gm 15gm TOPIC SCH ×2 (08:46→18:18)
[2017-04-19 12:19] VITALS: BP 132/82
[2017-04-19] MEDS ORDERED: DOXYCYCLINE MO100 MG ORAL (14:07)
[2017-04-19 15:52] VITALS: BP 124/65
--- NOTE | 2017-04-19 19:15 | General Progress Note ---
Assessment/Plan Problem List: (1) Wound dehiscence ICD Codes: T81.30XA - Disruption of wound, unspecified, initial encounter SNOMED: 962337004 (2) Cellulitis ICD Codes: L03.90 - Cellulitis, unspecified SNOMED: 704436012 (3) Hidradenitis suppurativa ICD Codes: L73.2 - Hidradenitis suppurativa SNOMED: 82283887 (4) Leukocytosis ICD Codes: D72.829 - Elevated white blood cell count, unspecified SNOMED: 172456704, 635176265 (5) Hypoalbuminemia ICD Codes: E88.09 - Other disorders of plasma-protein metabolism, not elsewhere classified SNOMED: 000196743 (6) Hypokalemia ICD Codes: E87.6 - Hypokalemia SNOMED: 77647154 Status: stable Assessment/Plan Plastic surgery consulted, appreciate recs s/p bedside debridement of nonviable tissue in right groin on 04/17/17 Empiric vanco IV for coverage of MRSA WBC downtrending Wound care per surgery: wet to dry dressing BID w/ dakin's solution Nystatin powder to groin Pain control, supportive care, bowel regimen Pt will require 2-3 days of inpatient care for IV abx and wound care Nutritional eval Replete K DC likely Wed per surgery FULL CODE D/w pt, RN, surgery regarding mgmt and dispo Subjective Date patient seen: Apr 19, 2017 Time patient seen: 12:00 ROS Limited/Unobtainable: No Constitutional: Reports: no symptoms HEENT: Reports: no symptoms Cardiovascular: Reports: no symptoms Respiratory: Reports: no symptoms Gastrointestinal/Abdominal: Reports: no symptoms Genitourinary: Reports: no symptoms Neurologic/Psychiatric: Reports: no symptoms Endocrine: Reports: no symptoms Hematologic/Lymphatic: Reports: no symptoms Allergies: Coded Allergies: No Known Allergies (Unverified , 03/29/17) Subjective No acute o/n events Pt doing well. Pain controlled. +BM today. Denies f/c, n/v, d/c, chest pain, SOB Objective Last 24 Hour Vital Signs Date Time Temp Pulse Resp B/P (MAP) Pulse Ox O2 Delivery O2 Flow Rate FiO2 04/19/17 15:52 98.6 86 20 124/65 97 Room Air 04/19/17 12:19 98.4 86 21 132/82 96 Room Air 04/19/17 08:00 97.4 85 19 105/64 95 Room Air 04/19/17 04:00 98.1 83 18 110/69 96 Room Air 04/19/17 00:00 98.0 85 18 124/60 97 Room Air 04/18/17 20:00 98.0 93 18 104/58 96 Room Air Intake and Output 04/19/17 04/20/17 19:00 07:00 Intake Total 1620 ml Balance 1620 ml Intake Oral 820 ml IV Total 800 ml Height (Feet): 5 Height (Inches): 10.00 Weight (Pounds): 190 Objective General: alert, cooperative, no distress, appears stated age Head: normocephalic, without obvious abnormality, atraumatic Eyes: conjunctivae/corneas clear. PERRL, EOM's intact Throat: lips, mucosa, and tongue normal. MMM Neck: supple, symmetrical, trachea midline, and no JVD Lungs: clear to auscultation bilaterally Heart: regular rate and rhythm, S1, S2 normal, no murmur, click, rub or gallop Abdomen: soft, non-tender, non-distended, bowel sounds normal; no masses or organomegaly Extremities: extremities normal, atraumatic, no cyanosis or edema Pulses: 2+ and symmetric Skin: +HS lesions of b/l groins w/ dressings c/d/i Neurologic: grossly normal, no focal deficits Molly Rodriguez M.D. Apr 19, 2017 19:15
[2017-04-19 20:12] VITALS: BP 119/72
[2017-04-20 00:40] VITALS: BP 115/68
[2017-04-20] MEDS: Morphine Sulfate 4mg/ml Inj IVP PRN (03:01)
[2017-04-20] MEDS: Vancomycin 1gm in Dextrose 275ml IVPB SCH ×3 (04:29→21:06)
[2017-04-20 04:30] VITALS: BP 120/76
[2017-04-20 08:00] VITALS: BP 120/73
[2017-04-20] MEDS: Docusate 100mg cap ORAL SCH ×2 (09:00→21:00)
[2017-04-20] MEDS ORDERED: Norco 10mg/325mg tab ORAL PRN (09:15)
[2017-04-20] MEDS: Heparin 5000 units/ml inj SUBQ SCH ×2 (10:22→21:08)
[2017-04-20] MEDS: Dakin's 0.25% (Half Strength) 16oz TOPIC SCH ×2 (10:23→17:34)
[2017-04-20 12:00] VITALS: BP 110/73
[2017-04-20] MEDS: Nystatin Powder 100,000 units/gm 15gm TOPIC SCH ×2 (12:14→21:07)
[2017-04-20 16:00] VITALS: BP 114/70
[2017-04-20] MEDS ORDERED: D5 1/2NS 1000ml IV ONE (16:47)
--- NOTE | 2017-04-20 17:38 | General Progress Note ---
Assessment/Plan Problem List: (1) Wound dehiscence ICD Codes: T81.30XA - Disruption of wound, unspecified, initial encounter SNOMED: 976636807 (2) Cellulitis ICD Codes: L03.90 - Cellulitis, unspecified SNOMED: 823311458 (3) Hidradenitis suppurativa ICD Codes: L73.2 - Hidradenitis suppurativa SNOMED: 87779571 (4) Leukocytosis ICD Codes: D72.829 - Elevated white blood cell count, unspecified SNOMED: 159585873, 501437406 (5) Hypoalbuminemia ICD Codes: E88.09 - Other disorders of plasma-protein metabolism, not elsewhere classified SNOMED: 700267416 (6) Hypokalemia ICD Codes: E87.6 - Hypokalemia SNOMED: 78500341 Status: stable Assessment/Plan Plastic surgery consulted, appreciate recs s/p bedside debridement of nonviable tissue in right groin on 04/17/17 Empiric vanco IV for coverage of MRSA --> will d/c with course of doxycycline PO Diflucan 150mg PO x1 for possible Emili vaginitis WBC downtrending Wound care per surgery: wet to dry dressing BID w/ dakin's solution Nystatin powder to groin Pain control, supportive care, bowel regimen Pt will require 2-3 days of inpatient care for IV abx and wound care Nutritional eval Replete K Home health set up for wound care BID DC planned for tomorrow FULL CODE D/w pt, RN, surgery regarding mgmt and dispo Subjective Date patient seen: Apr 20, 2017 Time patient seen: 17:36 ROS Limited/Unobtainable: No Constitutional: Reports: no symptoms HEENT: Reports: no symptoms Cardiovascular: Reports: no symptoms Respiratory: Reports: no symptoms Gastrointestinal/Abdominal: Reports: no symptoms Genitourinary: Reports: no symptoms Neurologic/Psychiatric: Reports: no symptoms Endocrine: Reports: no symptoms Hematologic/Lymphatic: Reports: no symptoms Allergies: Coded Allergies: No Known Allergies (Unverified , 03/29/17) All Systems: reviewed and negative except above Subjective No acute o/n events Pt doing well. Pain controlled. Denies f/c, n/v, d/c, chest pain, SOB C/o yeast infection Objective Last 24 Hour Vital Signs Date Time Temp Pulse Resp B/P (MAP) Pulse Ox O2 Delivery O2 Flow Rate FiO2 04/20/17 16:00 98.6 88 19 114/70 97 Room Air 04/20/17 12:00 98.4 90 19 110/73 Room Air 04/20/17 08:00 98.7 107 18 120/73 95 Room Air 04/20/17 04:30 97.8 85 18 120/76 97 Room Air 04/20/17 00:40 98.2 85 19 115/68 94 Room Air 04/19/17 20:12 98.7 93 18 119/72 93 Room Air Intake and Output 04/20/17 04/21/17 19:00 07:00 Intake Total 590 ml Balance 590 ml Intake Oral 590 ml # Voids 1 Height (Feet): 5 Height (Inches): 10.00 Weight (Pounds): 190 Objective General: alert, cooperative, no distress, appears stated age Head: normocephalic, without obvious abnormality, atraumatic Eyes: conjunctivae/corneas clear. PERRL, EOM's intact Throat: lips, mucosa, and tongue normal. MMM Neck: supple, symmetrical, trachea midline, and no JVD Lungs: clear to auscultation bilaterally Heart: regular rate and rhythm, S1, S2 normal, no murmur, click, rub or gallop Abdomen: soft, non-tender, non-distended, bowel sounds normal; no masses or organomegaly Extremities: extremities normal, atraumatic, no cyanosis or edema Pulses: 2+ and symmetric Skin: +HS lesions of b/l groins w/ dressings c/d/i Neurologic: grossly normal, no focal deficits Molly Rodriguez M.D. Apr 20, 2017 17:38
[2017-04-20] MEDS ORDERED: Fluconazole 100mg tab ORAL ONE (18:00)
[2017-04-20 20:19] VITALS: BP 111/67
[2017-04-21] VITALS: BP 113/57
[2017-04-21 04:00] VITALS: BP 113/58
[2017-04-21] MEDS: Vancomycin 1gm in Dextrose 275ml IVPB SCH (04:21)
[2017-04-21 08:00] VITALS: BP 117/72
[2017-04-21] MEDS: Docusate 100mg cap ORAL SCH (09:00)
[2017-04-21] MEDS: Heparin 5000 units/ml inj SUBQ SCH (09:01)
[2017-04-21] MEDS: Dakin's 0.25% (Half Strength) 16oz TOPIC SCH (09:02)
[2017-04-21] MEDS: Nystatin Powder 100,000 units/gm 15gm TOPIC SCH (09:14)
--- NOTE | 2017-04-21 19:36 | Discharge Summary ---
Discharge Summary Hospital Course Date of Admission Apr 16, 2017 at 13:44 Date of Discharge Apr 21, 2017 at 10:30 Admitting Diagnosis Wound dehiscence, Cellulitis Reason for Hospitalization: Wound dehiscence HPI 42y/o female with pmh of hidradenitis suppurative s/p radical excision of bilateral infected groin tissue with flap elevation on 03/30/17, then bilateral groin wound vac changes on 04/01/17, followed by bilateral groin wound closure with wound vac placement on 04/04/17, and finally bilateral groin tissue debridement and exam under anesthesia on 04/07/17 who presents with concern for wound dehiscence. Pt recently admitted 03/29-04/12 and underwent multiple surgical procedures and was discharged home w/ home health for wound care and with PO antibiotics. Pt notes compliance with antibiotics and was receiving wound care at home. However, pt noted to have dehiscence of her wounds. Pt notes increased redness/swelling/pain/drainage at groin sites. Denies f/c, n/v, d/c, chest pain, SOB. Consultations Plastic surgery Hospital Course Pt noted to have leukocytosis to 18,000 on admission. She was treated with IV antibiotics including coverage for MRSA. She underwent bedside debridement of nonviable tissue in right groin on 04/17/17 by plastic surgery. Pt was continued on aggressive wound care twice daily. Once pain controlled and wounds stable per surgery, pt was discharged home w/ home health for wound care. General: alert, cooperative, no distress, appears stated age Head: normocephalic, without obvious abnormality, atraumatic Eyes: conjunctivae/corneas clear. PERRL, EOM's intact Throat: lips, mucosa, and tongue normal. MMM Neck: supple, symmetrical, trachea midline, and no JVD Lungs: clear to auscultation bilaterally Heart: regular rate and rhythm, S1, S2 normal, no murmur, click, rub or gallop Abdomen: soft, non-tender, non-distended, bowel sounds normal; no masses or organomegaly Extremities: extremities normal, atraumatic, no cyanosis or edema Pulses: 2+ and symmetric Skin: Dressings c/d/i Neurologic: grossly normal, no focal deficits Discharge Medications New Medications: Doxycycline Monohydrate* (Doxycycline Monohydrate*) 100 Mg Capsule 100 MG ORAL Q12H for 7 Days, #14 CAP 0 Refills Continued Medications: Desogestrel-Ethinyl Estradiol (Enskyce) 1 Each Tablet 1 EACH PO DAILY, TAB Hydrocodone Bit/Acetaminophen 5-325* ([place] 5-325*) 1 Each Tablet 1 TAB ORAL Q4H PRN for 40 Days, TAB Discontinued Medications: Cephalexin* (Keflex*) 500 Mg Capsule 500 MG ORAL Q6H for 7 Days, #28 CAP 0 Refills Discharge Condition Upon Discharge: stable Discharge Disposition Patient was discharged to Home with Home Health() Discharge Diagnoses: (1) Wound dehiscence (2) Cellulitis (3) Hidradenitis suppurativa (4) Hypokalemia (5) Hypoalbuminemia Molly Rodriguez M.D. Apr 21, 2017 19:36
== END 2017-04-21 10:30 | disposition home health service (06) | DRG 580 ==
LOC: EMR 13:41 → 3E 13:44 → EDBEDREQ 13:55
PROC: 0JD80ZZ Extraction of Abdomen Subcutaneous Tissue and Fascia, Open Approach (ICD-10-PCS; principal; 2017-04-17)
DX: L03.314 Cellulitis of groin (principal); T81.31XA Disruption of external operation (surgical) wound, not elsewhere classified, initial encounter; D62 Acute posthemorrhagic anemia; L02.214 Cutaneous abscess of groin; E88.09 Other disorders of plasma-protein metabolism, not elsewhere classified; L73.2 Hidradenitis suppurativa; E87.6 Hypokalemia
CPT/HCPCS: 36415; 80048; 80053; 80076; 80202; 85007; 85025; 87040; 99285; J8499